=== PATIENT | male | born 1970 | race Caucasian/White ===

== ENCOUNTER 2019-02-18 12:43 | Inpatient (IN) | payer OTHER ==
[2019-02-18 13:32] VITALS: BMI 22.6
--- NOTE | 2019-02-18 16:38 | HP ---
CIWA Score Nausea/Vomitin-No Nausea/No Vomiting Muscle Tremors: 4-Moderate,w/Arms Extend Anxiety: 3 Agitation: 1-Slight > Activity Paroxysmal Sweats: 2 Orientation: 0-Oriented Tacttile Disturbances: 0-None Auditory Disturbances: 0-None Visual Disturbances: 1-Very Mild Sensitivity Headache: 2-Mild CIWA-Ar Total Score: 13 - Admission Criteria OASAS Guidelines: Admission for Medically Managed Detox: Requires at least one of the followin. CIWA greater than 12 2. Seizures within the past 24 hours 3. Delirium tremens within the past 24 hours 4. Hallucinations within the past 24 hours 5. Acute intervention needed for co occurring medical disorder 6. Acute intervention needed for co occurring psychiatric disorder 7. Severe withdrawal that cannot be handled at a lower level of care (continued vomiting, continued diarrhea, abnormal vital signs) requiring intravenous medication and/or fluids 8. Patient presents the following: CIWA greater than 12 Admission Criteria Met: Admission criteria met Admission ROS [facility] - [facility] Chief Complaint: Vijay Del Rosario is a 48 year old male presenting for alcohol and heroin abuse. Allergies/Adverse Reactions: Allergies Allergy/AdvReac Type Severity Reaction Status Date / Time No Known Allergies Allergy Verified 02/18/19 13:13 History of Present Illness: Vijay Del Rosario is a 48 year old male presenting for alcohol and heroin abuse. Alcohol: drinks about a handle of of vodka daily. Last drink yesterday. Has been drinking since the age of 14. Has had seizures in the past (has an active seizure disorder, last seizure 2 months ago). Has had blackouts. Denies falls and head hits. Longest period of sobriety: 1.5 years. Was previously on treatment but relapsed. Heroin: 7-10 bags/daily. Daily user. Endorses IVDU. Has had history of overdose. Does not have a Narcan kit but does know how to use it. currently on methadone program, dose 45mg, daily. Cocaine: 0.5-1g daily. 5-7 times a week. Has been to detox in the past. Has been to rehab in the past. Plans after detox: wants to go to inpatient rehab. Medical History: cranial aneurysm (hospitalized) with residual L sided deficits , seizure disorder (on Keppra), DMT2 (on insulin), HLD, Hep C (treated), Psychiatric History: PTSD, bipolar, anxiety, depression Surgical History: cranial aneurysm, hernia repair, bilateral knee surgeries ( ligamentous), ankle surgery (s/p fx), appendectomy, necrosis removal (s/p brown recluse spider bite), wrist fx and repair Smokin/2 ppd Social: lives in community residence. [employer], currently on disability. Counseled on proper nutrition. Advised to return to primary care doctor for continued management of his chronic medical conditions. Will be admitted for alcohol detox with CIWA score and history of seizures. Will talk with counselor regarding his options after detox. Exam Limitations: No Limitations - Ebola screening Have you traveled outside of the country in the last 21 days: No Have you had contact with anyone from an Ebola affected area: No - Review of Systems Constitutional: Chills, Loss of Appetite, Changes in sleep EENT: reports: Blurred Vision (chronic), Nose Congestion Respiratory: reports: Cough Cardiac: reports: Palpitations GI: reports: No Symptoms Reported : reports: No Symptoms Reported Musculoskeletal: reports: Back Pain, Muscle Pain, Neck Pain Integumentary: reports: No Symptoms Reported Neuro: reports: Numbness, Tingling (in hand and feet) Endocrine: reports: No Symptoms Reported Hematology: reports: No Symptoms Reported Psychiatric: reports: Anxious, Depressed Patient History - Patient Medical History Hx Anemia: No Hx Asthma: No Hx Chronic Obstructive Pulmonary Disease (COPD): No Hx Cancer: No Hx Cardiac Disorders: No Hx Congestive Heart Failure: No Hx Hypertension: No Hx Hypercholesterolemia: Yes Hx Pacemaker: No HX Cerebrovascular Accident: Yes (aneurysm rupture) Hx Seizures: Yes (on Keppra) Hx Dementia: No Hx Diabetes: Yes Hx Gastrointestinal Disorders: No Hx Liver Disease: No Hx Genitourinary Disorders: No Hx Sexually Transmitted Disorders: No Hx Renal Disease (ESRD): No Hx Thyroid Disease: No Hx Human Immunodeficiency Virus (HIV): No Hx Hepatitis C: Yes (treated) Hx Depression: Yes Hx Suicide Attempt: No Hx Bipolar Disorder: Yes Hx Schizophrenia: No - Patient Surgical History Hx Neurologic Surgery: Yes (aneurysm repair and craniotomy) Hx Cataract Extraction: No Hx Cardiac Surgery: No Hx Lung Surgery: No Hx Breast Surgery: No Hx Breast Biopsy: No Hx Abdominal Surgery: Yes (hernioa repair) Hx Appendectomy: Yes Hx Cholecystectomy: No Hx Genitourinary Surgery: No Hx Orthopedic Surgery: Yes (multiple fx repairs) - PPD History Previous Implant?: No PPD to be Administered?: Yes - Smoking Cessation Smoking history: Current every day smoker Have you smoked in the past 12 months: Yes Initiated information on smoking cessation: Yes 'Breaking Loose' booklet given: 02/18/19 - Substance & Tx. History Hx Alcohol Use: Yes Hx Substance Use: Yes Substance Use Type: Alcohol, Cocaine, Heroin - Substances abused Heroin Substance route: Injection Frequency: Daily Amount used: 8 bags Age of first use: 17 Date of last use: 02/18/19 Cocaine Substance route: Injection Frequency: Daily Amount used: 2 grams Age of first use: 16 Date of last use: 02/17/19 Alcohol Substance route: Oral Frequency: Daily Amount used: handle of vodka daily Date of last use: 02/17/19 Admission Physical Exam S - Vital Signs Vital Signs: Vital Signs - 24 hr 02/18/19 13:30 Temperature 96.6 F L Pulse Rate 84 Respiratory 18 Rate Blood Pressure 130/75 - Physical General Appearance: Yes: Disheveled, Mild Distress HEENTM: Yes: EOMI, Normocephalic, Normal Voice, TRAVIS, Pharynx Normal, Other ( dry mucous membranes) Respiratory: Yes: Chest Non-Tender, Lungs Clear, Normal Breath Sounds, No Respiratory Distress, No Accessory Muscle Use Neck: Yes: No masses,lesions,Nodules, Trachea in good position Breast: Yes: Breast Exam Deferred Cardiology: Yes: Regular Rhythm, Regular Rate, S1, S2 Abdominal: Yes: Normal Bowel Sounds, Non Tender, Flat Genitourinary: Yes: Within Normal Limits Back: Yes: Normal Inspection Musculoskeletal: Yes: Back pain, Joint Stiffness Extremities: Yes: Normal Capillary Refill, Normal Range of Motion, Non-Tender Neurological: Yes: investigator internal affairs II-XII NML intact, Alert, Numbness (on R hand), Other ( decreased strength on R hand 4/5, all other 5/5) Integumentary: Yes: Normal Color, Dry, Warm, Track Cano (noted on bilateral AC) - Diagnostic (1) Alcohol abuse Current Visit: Yes Status: Acute (2) Heroin abuse Current Visit: Yes Status: Acute (3) Methadone maintenance therapy patient Current Visit: Yes Status: Acute (4) IVDU (intravenous drug user) Current Visit: Yes Status: Acute (5) Cocaine abuse Current Visit: Yes Status: Acute (6) Nicotine dependence Current Visit: Yes Status: Acute (7) HLD (hyperlipidemia) Current Visit: Yes Status: Acute (8) Hepatitis C carrier Current Visit: Yes Status: Acute (9) Seizure disorder Current Visit: Yes Status: Acute (10) Diabetes mellitus Current Visit: Yes Status: Acute (11) PTSD (post-traumatic stress disorder) Current Visit: Yes Status: Acute (12) Depression Current Visit: Yes Status: Acute (13) Anxiety Current Visit: Yes Status: Acute (14) Bipolar disorder Current Visit: Yes Status: Acute Cleared for Admission S - Detox or Rehab [facility] Level of Care: Medically Managed Detox Regimen/Protocol: Librium Inpatient Rehab Admission - Rehab Decision to Admit Inpatient rehab admission?: No
[2019-02-18] MEDS ORDERED: IBUPROFEN 400 MG TABLET (FP) PO PRN (17:03)
[2019-02-18] MEDS ORDERED: MENTHOL/PHENOL 1 EACH UD MM PRN (17:03)
[2019-02-18] MEDS ORDERED: chlordiazePOXIDE HCL 25 MG CAPSULE PO PRN (17:03)
[2019-02-18] MEDS ORDERED: BISMUTH SUBSALICYLATE 524 MG/30 ML UD PO PRN (17:03)
[2019-02-18] MEDS ORDERED: ACETAMINOPHEN 325 MG TABLET (FP) PO PRN ×2 (17:03)
[2019-02-18] MEDS ORDERED: MAGNESIUM CITRATE 300 ML BOTTLE PO PRN (17:03)
[2019-02-18] MEDS ORDERED: hydrOXYzine PAMOATE 25 MG CAPSULE (FP) PO PRN (17:03)
[2019-02-18] MEDS ORDERED: METHOCARBAMOL 500 MG TABLET PO PRN (17:03)
[2019-02-18] MEDS ORDERED: MAGNESIUM HYDROX 2400MG/30ML ORAL SUSPENSION 30 ML CUP PO PRN (17:03)
[2019-02-18] MEDS ORDERED: ALBUTEROL SO4 8 GM HFA INHALER IH PRN (17:22)
--- NOTE | 2019-02-18 17:31 | PN ---
Teaching Attending Note Name of Resident: Thad Haile ATTENDING PHYSICIAN STATEMENT I saw and evaluated the patient. I reviewed the resident's note and discussed the case with the resident. I agree with the resident's findings and plan as documented. SUBJECTIVE: 48 yo with HCV- s/p treatment, seizures, DM on insulin, here for alcohol detox- uses 1.6L of vodka/day, also in MAT methadone- but still uses IV heroin. Last methadone dose yesterday OBJECTIVE: Vital Signs - 24 hr 02/18/19 13:30 Temperature 96.6 F L Pulse Rate 84 Respiratory 18 Rate Blood Pressure 130/75 tremulous alert and oriented ASSESSMENT AND PLAN: AUD- librium detox protocol continue methadone MAT
[2019-02-18] MEDS ORDERED: levETIRAcetam XR 750 MG TAB PO SCH (22:00)
[2019-02-18] MEDS: GABAPENTIN 300 MG CAPSULE (FP) PO SCH (22:16)
[2019-02-18] MEDS: MELATONIN 5 MG TABLETS PO PRN (22:16)
[2019-02-18] MEDS: chlordiazePOXIDE HCL 25 MG CAPSULE PO SCH (22:16)
[2019-02-18] MEDS: MONTELUKAST NA 10 MG TABLET PO SCH (22:16)
[2019-02-18] MEDS: THIAMINE HCL 100 MG TABLET (FP) PO SCH (22:16)
[2019-02-18] MEDS: levETIRAcetam 250 MG TABLET (FP) PO SCH (22:18)
[2019-02-18] MEDS: INSULIN (LEVEMIR) 100 UNITS/ML UNITS SQ SCH (22:20)
[2019-02-18] MEDS: INSULIN SLIDING SCALE (NOVOLOG) 1 VIAL SQ SCH (22:20)
[2019-02-19] MEDS: chlordiazePOXIDE HCL 25 MG CAPSULE PO SCH ×4 (05:48→22:06)
[2019-02-19] MEDS: GABAPENTIN 300 MG CAPSULE (FP) PO SCH ×3 (05:48→22:05)
[2019-02-19] MEDS: metFORMIN HCL 500 MG TABLET (FP) PO SCH ×2 (06:35→17:11)
[2019-02-19] MEDS: INSULIN SLIDING SCALE (NOVOLOG) 1 VIAL SQ SCH ×4 (08:04→22:06)
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
[2019-02-19] MEDS: ASPIRIN 81 MG CHEWABLE TABLETS PO SCH (10:05)
[2019-02-19] MEDS: levETIRAcetam 250 MG TABLET (FP) PO SCH ×2 (10:05→22:05)
[2019-02-19] MEDS: NICOTINE 14 MG/24 HOURS TOPICAL PATCH TD SCH (10:07)
[2019-02-19] MEDS: PRENATAL VITAMINS W/ FOLIC ACID TABLET (FP) PO SCH (10:07)
[2019-02-19 10:20] LABS: HEMATOCRIT 39.2 % (35.4-49); HEMOGLOBIN 13.5 GM/dL (11.7-16.9); MCH 31.8 pg (25.7-33.7); MCHC 34.5 g/dl (32.0-35.9); MEAN CELL VOLUME 92.3 fl (80-96); MEAN PLT VOLUME 8.1 fl (7.5-11.1); PLATELET COUNT 199 K/MM3 (134-434); RBC 4.24 M/mm3 (4.00-5.60); RDW 12.6 % (11.9-15.9); WHITE BLOOD COUNT 10.8 K/mm3 (4.0-10.0)
[2019-02-19 10:21] LABS: ALBUMIN 3.2 g/dl (3.4-5.0); BILIRUBIN,TOTAL 0.3 mg/dL (0.2-1); CALCIUM 8.2 mg/dL (8.5-10.1); CREATININE 0.8 mg/dL (0.55-1.3); POTASSIUM 4.2 mmol/L (3.5-5.1); TOT PROT 6.5 g/dl (6.4-8.2)
[2019-02-19] MEDS ORDERED: METHADONE HCL 10 MG TABLET PO SCH (10:45)
[2019-02-19] MEDS ORDERED: METHADONE HCL 10 MG TABLET ONE ×2 (11:46→11:50)
[2019-02-19] MEDS ORDERED: METHADONE HCL 40 MG DISPERSABLE TABLET ONE ×2 (11:46→11:51)
[2019-02-19] MEDS ORDERED: METHADONE HCL 5 MG TABLET ONE ×2 (11:47→11:51)
[2019-02-19] MEDS: ESCITALOPRAM OXALATE 10 MG TABLET (FP) PO SCH (11:59)
[2019-02-19] MEDS: QUEtiapine FUMARATE 25 MG TABLET (FP) PO SCH ×2 (11:59→22:04)
[2019-02-19] MEDS: METHADONE 40 MG, METHADONE 10 MG, METHADONE 5 MG PO SCH (11:59)
[2019-02-19] MEDS: MAG HYDROX/AL HYDROX/SIMETH 30 ML UNIT-DOSE CUP PO PRN ×2 (13:32→21:41)
[2019-02-19] MEDS ORDERED: TRIMETHOBENZAMIDE HCL 300 MG CAPSULE PO PRN (13:47)
--- NOTE | 2019-02-19 13:53 | PN ---
[facility] CIWA - CIWA Score Nausea/Vomitin Muscle Tremors: None Anxiety: 3 Agitation: 2 Paroxysmal Sweats: 3 Orientation: 0-Oriented Tacttile Disturbances: 0-None Auditory Disturbances: 0-None Visual Disturbances: 2-Mild Sensitivity Headache: 0-None Present CIWA-Ar Total Score: 13 S Progress Note (SOAP) Subjective: Sweating, Nausea, H/A, Anxious. Objective: PATIENT A & O X 3, OBSERVED AMBULATING ON DETOX UNIT UNASSISTED. IN NO ACUTE DISTRESS. PATIENT AFEBRILE. 02/19/19 13:52 Vital Signs Temperature 96.6 F L 02/19/19 09:03 Pulse Rate 98 H 02/19/19 09:03 Respiratory Rate 19 02/19/19 09:03 Blood Pressure 119/76 02/19/19 09:03 O2 Sat by Pulse Oximetry (%) Laboratory Tests 02/18/19 02/19/19 02/19/19 20:59 05:50 08:10 WBC 10.8 H RBC 4.24 Hgb 13.5 Hct 39.2 MCV 92.3 MCH 31.8 MCHC 34.5 RDW 12.6 Plt Count 199 MPV 8.1 Sodium Potassium Chloride Carbon Dioxide Anion Gap BUN Creatinine Est GFR (CKD-EPI)AfAm Est GFR (CKD-EPI)NonAf POC Glucometer 250 164 Random Glucose Calcium Total Bilirubin AST ALT Alkaline Phosphatase Total Protein Albumin RPR Titer 02/19/19 02/19/19 08:10 08:10 WBC RBC Hgb Hct MCV MCH MCHC RDW Plt Count MPV Sodium 139 Potassium 4.2 Chloride 103 Carbon Dioxide 31 Anion Gap 6 L BUN 22.0 H Creatinine 0.8 Est GFR (CKD-EPI)AfAm 123.29 Est GFR (CKD-EPI)NonAf 106.38 POC Glucometer Random Glucose 135 H Calcium 8.2 L Total Bilirubin 0.3 AST 17 ALT 23 Alkaline Phosphatase 94 Total Protein 6.5 Albumin 3.2 L RPR Titer Nonreactive LABS NOTED. Assessment: 02/19/19 13:50 WITHDRAWAL SYMPTOMS. LEUKOCYTOSIS. 02/19/19 13:52 Plan: CONTINUE DETOX. INCREASE DAILY PO WATER INTAKE. PRN TIGAN PO FOR NAUSEA. REPEAT CBC TOMORROW AM FOR ELEVATED WBC LEVEL NOTED ON DETOX ADMISSION LABORATORY ASSESSMENT (PATIENT REPORTED HISTORY OF IVDU ON DETOX ADMISSION HISTORY AND PHYSICAL ASSESSMENT).
[2019-02-19] MEDS: MONTELUKAST NA 10 MG TABLET PO SCH (22:05)
[2019-02-19] MEDS: THIAMINE HCL 100 MG TABLET (FP) PO SCH (22:06)
[2019-02-19] MEDS: INSULIN (LEVEMIR) 100 UNITS/ML UNITS SQ SCH (22:06)
[2019-02-20] MEDS ORDERED: METHADONE HCL 10 MG TABLET ONE (04:05)
[2019-02-20] MEDS ORDERED: METHADONE HCL 40 MG DISPERSABLE TABLET ONE (04:06)
[2019-02-20] MEDS ORDERED: METHADONE HCL 5 MG TABLET ONE (04:06)
[2019-02-20] MEDS: METHADONE 40 MG, METHADONE 10 MG, METHADONE 5 MG PO SCH (05:39)
[2019-02-20] MEDS: chlordiazePOXIDE HCL 25 MG CAPSULE PO SCH ×4 (05:40→22:21)
[2019-02-20] MEDS: GABAPENTIN 300 MG CAPSULE (FP) PO SCH ×3 (05:40→22:20)
[2019-02-20] MEDS: metFORMIN HCL 500 MG TABLET (FP) PO SCH ×2 (06:13→17:02)
[2019-02-20] MEDS: INSULIN SLIDING SCALE (NOVOLOG) 1 VIAL SQ SCH ×4 (07:59→22:24)
[2019-02-20] MEDS ORDERED: KETOROLAC TROMETHAMINE 10 MG TABLET PO SCH (10:00)
[2019-02-20] MEDS: ASPIRIN 81 MG CHEWABLE TABLETS PO SCH (10:01)
[2019-02-20] MEDS: ESCITALOPRAM OXALATE 10 MG TABLET (FP) PO SCH (10:01)
[2019-02-20] MEDS: PRENATAL VITAMINS W/ FOLIC ACID TABLET (FP) PO SCH (10:01)
[2019-02-20] MEDS: QUEtiapine FUMARATE 25 MG TABLET (FP) PO SCH ×2 (10:01→22:20)
[2019-02-20] MEDS: NICOTINE 14 MG/24 HOURS TOPICAL PATCH TD SCH (10:02)
[2019-02-20 10:14] LABS: BASO % 0.6 % (0-2.0); EOS % 6.6 % (0-4.5); HEMATOCRIT 37.4 % (35.4-49); HEMOGLOBIN 12.7 GM/dL (11.7-16.9); LYMPH % 22.9 % (8-40); MCH 31.2 pg (25.7-33.7); MEAN CELL VOLUME 91.8 fl (80-96); MEAN PLT VOLUME 7.8 fl (7.5-11.1); MONO % 8.3 % (3.8-10.2); NEUT % 61.6 % (42.8-82.8); PLATELET COUNT 199 K/MM3 (134-434); RBC 4.08 M/mm3 (4.00-5.60); RDW 12.7 % (11.9-15.9); WHITE BLOOD COUNT 11.8 K/mm3 (4.0-10.0)
[2019-02-20] MEDS: levETIRAcetam 250 MG TABLET (FP) PO SCH ×2 (10:30→22:21)
[2019-02-20] MEDS: MAG HYDROX/AL HYDROX/SIMETH 30 ML UNIT-DOSE CUP PO PRN ×2 (10:31→21:36)
[2019-02-20] MEDS: CYCLOBENZAPRINE HCL 5 MG TABLET PO SCH ×2 (13:16→22:20)
--- NOTE | 2019-02-20 14:40 | PN ---
[facility] CIWA - CIWA Score Nausea/Vomitin-No Nausea/No Vomiting Muscle Tremors: None Anxiety: 3 Agitation: 3 Paroxysmal Sweats: 3 Orientation: 0-Oriented Tacttile Disturbances: 2-Mild Itch/Numbness/Burn Auditory Disturbances: 0-None Visual Disturbances: 0-None Headache: 0-None Present CIWA-Ar Total Score: 11 S Progress Note (SOAP) Subjective: Anxious, Constipation, Sweating. Objective: PATIENT A & O X 3, OBSERVED AMBULATING ON DETOX UNIT UNASSISTED. IN NO ACUTE DISTRESS. 02/20/19 14:39 Vital Signs Temperature 97.7 F 02/20/19 13:37 Pulse Rate 106 H 02/20/19 13:37 Respiratory Rate 20 02/20/19 13:37 Blood Pressure 147/99 02/20/19 13:37 O2 Sat by Pulse Oximetry (%) Laboratory Tests 02/18/19 02/19/19 02/19/19 20:59 05:50 08:10 WBC 10.8 H RBC 4.24 Hgb 13.5 Hct 39.2 MCV 92.3 MCH 31.8 MCHC 34.5 RDW 12.6 Plt Count 199 MPV 8.1 Absolute Neuts (auto) Neutrophils % Lymphocytes % Monocytes % Eosinophils % Basophils % Nucleated RBC % Sodium Potassium Chloride Carbon Dioxide Anion Gap BUN Creatinine Est GFR (CKD-EPI)AfAm Est GFR (CKD-EPI)NonAf POC Glucometer 250 164 Random Glucose Calcium Total Bilirubin AST ALT Alkaline Phosphatase Total Protein Albumin RPR Titer 02/19/19 02/19/19 02/19/19 08:10 08:10 16:28 WBC RBC Hgb Hct MCV MCH MCHC RDW Plt Count MPV Absolute Neuts (auto) Neutrophils % Lymphocytes % Monocytes % Eosinophils % Basophils % Nucleated RBC % Sodium 139 Potassium 4.2 Chloride 103 Carbon Dioxide 31 Anion Gap 6 L BUN 22.0 H Creatinine 0.8 Est GFR (CKD-EPI)AfAm 123.29 Est GFR (CKD-EPI)NonAf 106.38 POC Glucometer 212 Random Glucose 135 H Calcium 8.2 L Total Bilirubin 0.3 AST 17 ALT 23 Alkaline Phosphatase 94 Total Protein 6.5 Albumin 3.2 L RPR Titer Nonreactive 02/19/19 02/20/19 02/20/19 20:52 05:40 08:00 WBC 11.8 H RBC 4.08 Hgb 12.7 Hct 37.4 MCV 91.8 MCH 31.2 MCHC 34.0 RDW 12.7 Plt Count 199 MPV 7.8 Absolute Neuts (auto) 7.2 Neutrophils % 61.6 Lymphocytes % 22.9 Monocytes % 8.3 Eosinophils % 6.6 H Basophils % 0.6 Nucleated RBC % 0 Sodium Potassium Chloride Carbon Dioxide Anion Gap BUN Creatinine Est GFR (CKD-EPI)AfAm Est GFR (CKD-EPI)NonAf POC Glucometer 181 131 Random Glucose Calcium Total Bilirubin AST ALT Alkaline Phosphatase Total Protein Albumin RPR Titer 02/20/19 10:34 WBC RBC Hgb Hct MCV MCH MCHC RDW Plt Count MPV Absolute Neuts (auto) Neutrophils % Lymphocytes % Monocytes % Eosinophils % Basophils % Nucleated RBC % Sodium Potassium Chloride Carbon Dioxide Anion Gap BUN Creatinine Est GFR (CKD-EPI)AfAm Est GFR (CKD-EPI)NonAf POC Glucometer 287 Random Glucose Calcium Total Bilirubin AST ALT Alkaline Phosphatase Total Protein Albumin RPR Titer LABS NOTED. RESULTS OF REPEAT CBC NOTED. REPEAT WBC LEVEL NOTED TO BE FURTHER ELEVATED (11.8 ). PATIENT AFEBRILE. PATIENT DENIED RECENT HISTORY OF IVDU TO FUND ACCOUNTANT TODAY; HOWEVER, TRACK HINOJOSA NOTED ON BILATERAL AC CREASES ON DETOX ADMISSION H & P. NO URINARY COMPLAINTS (BURNING, PAIN, FREQUENCY, URGENCY, HESITANCY) OFFERED BY PATIENT DURING TODAY'S ROUNDS ASSESSMENT. 02/20/19 14:42 Assessment: 02/20/19 14:40 WITHDRAWAL SYMPTOMS. LEUKOCYTOSIS. Plan: CONTINUE DETOX. MEDICAL CONSULTATION WITH RESIDENT DR. Amaury CLEMENS REQUESTED FOR ELEVATED WBC LEVEL NOTED ON DETOX ADMISSION AND REPEAT LABORATORY ASSESSMENT.
--- NOTE | 2019-02-20 15:08 | HOSP ---
Subjective - Review of Symptoms Subjective: 48 year old male history of hepatitis C (treated with Harvoni), alcohol withdrawal seizures here for detox from alcohol and heroin use. Consulted for leukocytosis. Patient reports he knows about a leukocytosis that started 5 years ago after beginning treatment with Harvoni. States that ever since, his white count has been elevated, last time he was evaluated by a doctor he reports it being ~12.5. States that he has seen a public health clinical nurse specialist for the elevated white count, has never been explained before and was told that no one could "figure it out". Denies any chest pain, shortness of breath, headache, nausea, vomiting, diarrhea, fevers, chills. Report mild flu like chills a few days ago but otherwise denies any recent illness or sick contacts. Alcohol: handle of vodka daily since 14 years old. Has had alcohol withdrawal seizures *Reported history of IVDA* Medical History: cranial aneurysm (hospitalized) with residual L sided deficits , seizure disorder (on Keppra), DMT2 (on insulin), HLD, Hep C (treated), Psychiatric History: PTSD, bipolar, anxiety, depression Surgical History: cranial aneurysm, hernia repair, bilateral knee surgeries ( ligamentous), ankle surgery (s/p fx), appendectomy, necrosis removal (s/p brown recluse spider bite), wrist fx and repair Smokin/2 ppd Social: lives in community residence. [employer], currently on disability. Physical Exam: Head: normocephalic Neck: No lymphadenopathy, no JVD Heart: mildly tachycardic, no murmurs Lungs: clear to auscultation, no wheezes, no crackles Abdomen: bowel sounds normal, no tenderness Extremities: pulses intact Pulmonary: No: Cough Gastrointestinal: No: Nausea, Vomiting, Abdominal Pain Genitourinary: No: Dysuria Physical Examination Vital Signs: Vital Signs Temperature 97.7 F 02/20/19 13:37 Pulse Rate 106 H 02/20/19 13:37 Respiratory Rate 20 02/20/19 13:37 Blood Pressure 147/99 02/20/19 13:37 O2 Sat by Pulse Oximetry (%) Constitutional: Yes: No Distress, Calm HENT: Yes: Atraumatic Cardiovascular: Yes: Tachycardia Respiratory: Yes: Regular, CTA Bilaterally Gastrointestinal: Yes: Normal Bowel Sounds, Soft Edema: No Peripheral Pulses WNL: Yes Integumentary: Yes: Skin Tear (Minor skin tear on) Labs: CBC, BMP 02/20/19 08:00 02/19/19 08:10 Hospitalist Encounter Assessment: 48 year old male being assessed for leukocytosis. #Leukocytosis: mild leukocytosis (11.8 up from 10.8) does not appear infectious in origin. Based on history of leukocytosis in the past and patient report of knowing he has it and had workup with public health clinical nurse specialist in the past, appears more as a chronic variation in patient's white count. Patient is currently undergoing detox from heroin and alcohol, and the symptoms of withdrawal could cause a leukemoid reaction. No dysuria or cough/SOB/chest pain, no current need to assess for urinary tract infection or pneumonia. Would opt to repeat labs prior to discharge and have patient repeat labs as an outpatient. Would also recommend appointment to public health clinical nurse specialist after discharge from detox for further evaluation. Visit type - Emergency Visit Emergency Visit: No - New Patient This patient is new to me today: Yes Date on this admission: 02/20/19 - Critical Care Critical Care patient: No
[2019-02-20] MEDS: KETOROLAC TROMETHAMINE 10 MG TABLET PO PRN (15:18)
[2019-02-20] MEDS: PANTOPRAZOLE 40 MG TABLET (FP) PO SCH (17:02)
[2019-02-20] MEDS: MONTELUKAST NA 10 MG TABLET PO SCH (22:20)
[2019-02-20] MEDS: THIAMINE HCL 100 MG TABLET (FP) PO SCH (22:20)
[2019-02-20] MEDS: MELATONIN 5 MG TABLETS PO PRN (22:22)
[2019-02-20] MEDS: INSULIN (LEVEMIR) 100 UNITS/ML UNITS SQ SCH (22:22)
[2019-02-21] MEDS ORDERED: chlordiazePOXIDE HCL 10 MG CAPSULE PO PRN
[2019-02-21] MEDS ORDERED: METHADONE HCL 10 MG TABLET ONE (04:51)
[2019-02-21] MEDS ORDERED: METHADONE HCL 5 MG TABLET ONE (04:52)
[2019-02-21] MEDS ORDERED: METHADONE HCL 40 MG DISPERSABLE TABLET ONE (04:52)
[2019-02-21] MEDS: METHADONE 40 MG, METHADONE 10 MG, METHADONE 5 MG PO SCH (05:27)
[2019-02-21] MEDS: chlordiazePOXIDE HCL 10 MG CAPSULE PO SCH ×4 (05:28→22:15)
[2019-02-21] MEDS: GABAPENTIN 300 MG CAPSULE (FP) PO SCH ×3 (05:28→22:11)
[2019-02-21] MEDS: CYCLOBENZAPRINE HCL 5 MG TABLET PO SCH ×3 (05:28→22:24)
[2019-02-21] MEDS: metFORMIN HCL 500 MG TABLET (FP) PO SCH ×2 (07:34→17:44)
[2019-02-21] MEDS: INSULIN SLIDING SCALE (NOVOLOG) 1 VIAL SQ SCH ×4 (07:35→22:13)
--- NOTE | 2019-02-21 10:01 | PN ---
S CIWA - CIWA Score Nausea/Vomitin-No Nausea/No Vomiting Muscle Tremors: None Anxiety: 3 Agitation: 0-Normal Activity Paroxysmal Sweats: 3 Orientation: 0-Oriented Tacttile Disturbances: 0-None Auditory Disturbances: 0-None Visual Disturbances: 0-None Headache: 2-Mild CIWA-Ar Total Score: 8 BHS Progress Note (SOAP) Subjective: c/o sweats, anxiety, and headache. Objective: 02/21/19 10:00 Vital Signs 02/21/19 02/21/19 03:30 06:33 Temperature 97.5 F L Pulse Rate 95 H Respiratory 18 18 Rate Blood Pressure 103/67 Lab Results WBC 11.8 K/mm3 (4.0-10.0) H 02/20/19 08:00 RBC 4.08 M/mm3 (4.00-5.60) 02/20/19 08:00 Hgb 12.7 GM/dL (11.7-16.9) 02/20/19 08:00 Hct 37.4 % (35.4-49) 02/20/19 08:00 MCV 91.8 fl (80-96) 02/20/19 08:00 MCHC 34.0 g/dl (32.0-35.9) 02/20/19 08:00 RDW 12.7 % (11.9-15.9) 02/20/19 08:00 Plt Count 199 K/MM3 (134-434) 02/20/19 08:00 Sodium 139 mmol/L (136-145) 02/19/19 08:10 Potassium 4.2 mmol/L (3.5-5.1) 02/19/19 08:10 Chloride 103 mmol/L (98-107) 02/19/19 08:10 Carbon Dioxide 31 mmol/L (21-32) 02/19/19 08:10 Anion Gap 6 MMOL/L (8-16) L 02/19/19 08:10 BUN 22.0 mg/dL (7-18) H 02/19/19 08:10 Creatinine 0.8 mg/dL (0.55-1.3) 02/19/19 08:10 Random Glucose 135 mg/dL (74-106) H 02/19/19 08:10 Calcium 8.2 mg/dL (8.5-10.1) L 02/19/19 08:10 Labs noted. Assessment: 02/21/19 10:00 AOX3, in no acute respiratory distress. Full ROM, ambulating in the unit. Withdrawal symptoms. 02/21/19 10:01 Plan: continue detox. Increase fluids.
[2019-02-21] MEDS: QUEtiapine FUMARATE 25 MG TABLET (FP) PO SCH ×2 (10:14→22:11)
[2019-02-21] MEDS: PANTOPRAZOLE 40 MG TABLET (FP) PO SCH (10:14)
[2019-02-21] MEDS: ESCITALOPRAM OXALATE 10 MG TABLET (FP) PO SCH (10:14)
[2019-02-21] MEDS: PRENATAL VITAMINS W/ FOLIC ACID TABLET (FP) PO SCH (10:14)
[2019-02-21] MEDS: NICOTINE 14 MG/24 HOURS TOPICAL PATCH TD SCH (11:03)
[2019-02-21] MEDS: ASPIRIN 81 MG CHEWABLE TABLETS PO SCH (11:27)
[2019-02-21] MEDS: levETIRAcetam 250 MG TABLET (FP) PO SCH ×2 (11:27→22:11)
[2019-02-21] MEDS: MONTELUKAST NA 10 MG TABLET PO SCH (22:11)
[2019-02-21] MEDS: THIAMINE HCL 100 MG TABLET (FP) PO SCH (22:11)
[2019-02-21] MEDS: INSULIN (LEVEMIR) 100 UNITS/ML UNITS SQ SCH (22:12)
[2019-02-22] MEDS ORDERED: METHADONE HCL 5 MG TABLET ONE (04:11)
[2019-02-22] MEDS ORDERED: METHADONE HCL 40 MG DISPERSABLE TABLET ONE (04:11)
[2019-02-22] MEDS ORDERED: METHADONE HCL 10 MG TABLET ONE (04:11)
[2019-02-22] MEDS: METHADONE 40 MG, METHADONE 10 MG, METHADONE 5 MG PO SCH (05:52)
[2019-02-22] MEDS: GABAPENTIN 300 MG CAPSULE (FP) PO SCH ×3 (05:52→21:18)
[2019-02-22] MEDS: chlordiazePOXIDE HCL 10 MG CAPSULE PO SCH ×2 (05:53→17:01)
[2019-02-22] MEDS: CYCLOBENZAPRINE HCL 5 MG TABLET PO SCH ×3 (07:28→21:18)
[2019-02-22] MEDS: metFORMIN HCL 500 MG TABLET (FP) PO SCH ×2 (07:28→17:01)
[2019-02-22] MEDS: INSULIN SLIDING SCALE (NOVOLOG) 1 VIAL SQ SCH ×4 (07:29→21:22)
--- NOTE | 2019-02-22 09:57 | PN ---
S CIWA - CIWA Score Nausea/Vomitin-No Nausea/No Vomiting Muscle Tremors: None Anxiety: 2 Agitation: 0-Normal Activity Paroxysmal Sweats: 2 Orientation: 0-Oriented Tacttile Disturbances: 0-None Auditory Disturbances: 0-None Visual Disturbances: 0-None Headache: 0-None Present CIWA-Ar Total Score: 4 BHS Progress Note (SOAP) Subjective: c/o mild anxiety and sweats. Objective: 02/22/19 09:55 Vital Signs 02/22/19 02/22/19 06:13 09:16 Temperature 97.4 F L 97.4 F L Pulse Rate 73 90 Respiratory 16 18 Rate Blood Pressure 116/71 93/64 Lab Results WBC 11.8 K/mm3 (4.0-10.0) H 02/20/19 08:00 RBC 4.08 M/mm3 (4.00-5.60) 02/20/19 08:00 Hgb 12.7 GM/dL (11.7-16.9) 02/20/19 08:00 Hct 37.4 % (35.4-49) 02/20/19 08:00 MCV 91.8 fl (80-96) 02/20/19 08:00 MCHC 34.0 g/dl (32.0-35.9) 02/20/19 08:00 RDW 12.7 % (11.9-15.9) 02/20/19 08:00 Plt Count 199 K/MM3 (134-434) 02/20/19 08:00 Sodium 139 mmol/L (136-145) 02/19/19 08:10 Potassium 4.2 mmol/L (3.5-5.1) 02/19/19 08:10 Chloride 103 mmol/L (98-107) 02/19/19 08:10 Carbon Dioxide 31 mmol/L (21-32) 02/19/19 08:10 Anion Gap 6 MMOL/L (8-16) L 02/19/19 08:10 BUN 22.0 mg/dL (7-18) H 02/19/19 08:10 Creatinine 0.8 mg/dL (0.55-1.3) 02/19/19 08:10 Random Glucose 135 mg/dL (74-106) H 02/19/19 08:10 Calcium 8.2 mg/dL (8.5-10.1) L 02/19/19 08:10 Labs noted. Assessment: 02/22/19 09:55 AOX3, in no respiratory distress. Full ROM, ambulating in the unit. Mild withdrawal symptoms. For d/c tomorrow. Plan: continue detox. D/C in AM.
[2019-02-22] MEDS: ASPIRIN 81 MG CHEWABLE TABLETS PO SCH (10:13)
[2019-02-22] MEDS: ESCITALOPRAM OXALATE 10 MG TABLET (FP) PO SCH (10:14)
[2019-02-22] MEDS: levETIRAcetam 250 MG TABLET (FP) PO SCH ×2 (10:14→21:18)
[2019-02-22] MEDS: QUEtiapine FUMARATE 25 MG TABLET (FP) PO SCH ×2 (10:14→21:18)
[2019-02-22] MEDS: PANTOPRAZOLE 40 MG TABLET (FP) PO SCH (10:14)
[2019-02-22] MEDS: PRENATAL VITAMINS W/ FOLIC ACID TABLET (FP) PO SCH (10:14)
[2019-02-22] MEDS: NICOTINE 14 MG/24 HOURS TOPICAL PATCH TD SCH (10:15)
[2019-02-22] MEDS: INSULIN (LEVEMIR) 100 UNITS/ML UNITS SQ SCH (21:17)
[2019-02-22] MEDS: MONTELUKAST NA 10 MG TABLET PO SCH (21:18)
[2019-02-22] MEDS: THIAMINE HCL 100 MG TABLET (FP) PO SCH (21:18)
[2019-02-22] MEDS: MELATONIN 5 MG TABLETS PO PRN (21:20)
[2019-02-23] MEDS ORDERED: METHADONE HCL 10 MG TABLET ONE (04:25)
[2019-02-23] MEDS ORDERED: METHADONE HCL 5 MG TABLET ONE (04:25)
[2019-02-23] MEDS ORDERED: METHADONE HCL 40 MG DISPERSABLE TABLET ONE (04:25)
[2019-02-23] MEDS ORDERED: chlordiazePOXIDE HCL 10 MG CAPSULE PO ONE (05:00)
[2019-02-23] MEDS: METHADONE 40 MG, METHADONE 10 MG, METHADONE 5 MG PO SCH (05:10)
[2019-02-23] MEDS: GABAPENTIN 300 MG CAPSULE (FP) PO SCH (05:10)
[2019-02-23] MEDS: metFORMIN HCL 500 MG TABLET (FP) PO SCH (06:26)
[2019-02-23] MEDS: CYCLOBENZAPRINE HCL 5 MG TABLET PO SCH (06:44)
[2019-02-23] MEDS: INSULIN SLIDING SCALE (NOVOLOG) 1 VIAL SQ SCH ×2 (06:56→11:43)
--- NOTE | 2019-02-23 07:47 | PN ---
Teaching Attending Note Name of Resident: Thad Hagan ATTENDING PHYSICIAN STATEMENT I saw and evaluated the patient. I reviewed the resident's note and discussed the case with the resident. I agree with the resident's findings and plan as documented. SUBJECTIVE: I agree with subjective findings of the resident OBJECTIVE: I agree with objective findings of the resident ASSESSMENT AND PLAN: Agree with recommendations as to the leukocytosis and follow up upon discharge and thereafter. Patient should follow up with compressed yeast supervisor once again. Dr. Rice
[2019-02-23] MEDS: PANTOPRAZOLE 40 MG TABLET (FP) PO SCH (10:04)
[2019-02-23] MEDS: levETIRAcetam 250 MG TABLET (FP) PO SCH (10:04)
[2019-02-23] MEDS: ASPIRIN 81 MG CHEWABLE TABLETS PO SCH (10:04)
[2019-02-23] MEDS: ESCITALOPRAM OXALATE 10 MG TABLET (FP) PO SCH (10:04)
[2019-02-23] MEDS: NICOTINE 14 MG/24 HOURS TOPICAL PATCH TD SCH (10:04)
[2019-02-23] MEDS: PRENATAL VITAMINS W/ FOLIC ACID TABLET (FP) PO SCH (10:04)
[2019-02-23] MEDS: KETOROLAC TROMETHAMINE 10 MG TABLET PO PRN (10:04)
[2019-02-23] MEDS: QUEtiapine FUMARATE 25 MG TABLET (FP) PO SCH (11:42)
[2019-02-23 13:02] VITALS: BP 112/78; PULSE 96; TEMP 96.5
--- NOTE | 2019-02-23 16:28 | DS ---
[facility] Detox Discharge Summary Admission Date: 02/18/19 Discharge Date: 02/23/19 - History Present History: Alcohol Dependence, Cocaine Dependence, Opioid Dependence, MMTP Additional Comments: PATIENT GOING TO [facility] ([facility]) FOR AFTERCARE. PATIENT WAS DISCHARGED FROM DETOX UNIT TO BE TAKEN OVER TO REHAB UNIT IN STABLE MEDICAL CONDITION. Pertinent Past History: History Of Cranial Aneurysm (with subsequent Left-Sided Deficits), Hypertcholesterolemia, History Of CVA (Aneurysm Rupture), History Of Seizures, Type II DM, Hep C (Treated), Depression, Bipolar Disorder, Anxiety, Depression, History Of hernia Repair, History Of Bilateral Knee Surgeries, History Of ankle Surgery (S/P Fracture), History Of Appendectomy, History Of Necrosis Removal (S/ P Spider Bite), History Of Wrist Fracture and Repair, IVDU, M.M.T.P. - Physical Exam Results Vital Signs: Vital Signs Temperature 96.5 F L 02/23/19 13:02 Pulse Rate 96 H 02/23/19 13:02 Respiratory Rate 16 02/23/19 13:02 Blood Pressure 112/78 02/23/19 13:02 O2 Sat by Pulse Oximetry (%) Pertinent Admission Physical Exam Findings: WITHDRAWAL SYMPTOMS. Laboratory Tests 02/18/19 02/19/19 02/19/19 20:59 05:50 08:10 WBC 10.8 H RBC 4.24 Hgb 13.5 Hct 39.2 MCV 92.3 MCH 31.8 MCHC 34.5 RDW 12.6 Plt Count 199 MPV 8.1 Absolute Neuts (auto) Neutrophils % Lymphocytes % Monocytes % Eosinophils % Basophils % Nucleated RBC % Sodium Potassium Chloride Carbon Dioxide Anion Gap BUN Creatinine Est GFR (CKD-EPI)AfAm Est GFR (CKD-EPI)NonAf POC Glucometer 250 164 Random Glucose Calcium Total Bilirubin AST ALT Alkaline Phosphatase Total Protein Albumin RPR Titer 02/19/19 02/19/19 02/19/19 08:10 08:10 16:28 WBC RBC Hgb Hct MCV MCH MCHC RDW Plt Count MPV Absolute Neuts (auto) Neutrophils % Lymphocytes % Monocytes % Eosinophils % Basophils % Nucleated RBC % Sodium 139 Potassium 4.2 Chloride 103 Carbon Dioxide 31 Anion Gap 6 L BUN 22.0 H Creatinine 0.8 Est GFR (CKD-EPI)AfAm 123.29 Est GFR (CKD-EPI)NonAf 106.38 POC Glucometer 212 Random Glucose 135 H Calcium 8.2 L Total Bilirubin 0.3 AST 17 ALT 23 Alkaline Phosphatase 94 Total Protein 6.5 Albumin 3.2 L RPR Titer Nonreactive 02/19/19 02/20/19 02/20/19 20:52 05:40 08:00 WBC 11.8 H RBC 4.08 Hgb 12.7 Hct 37.4 MCV 91.8 MCH 31.2 MCHC 34.0 RDW 12.7 Plt Count 199 MPV 7.8 Absolute Neuts (auto) 7.2 Neutrophils % 61.6 Lymphocytes % 22.9 Monocytes % 8.3 Eosinophils % 6.6 H Basophils % 0.6 Nucleated RBC % 0 Sodium Potassium Chloride Carbon Dioxide Anion Gap BUN Creatinine Est GFR (CKD-EPI)AfAm Est GFR (CKD-EPI)NonAf POC Glucometer 181 131 Random Glucose Calcium Total Bilirubin AST ALT Alkaline Phosphatase Total Protein Albumin RPR Titer 02/20/19 02/20/19 02/20/19 10:34 16:33 21:13 WBC RBC Hgb Hct MCV MCH MCHC RDW Plt Count MPV Absolute Neuts (auto) Neutrophils % Lymphocytes % Monocytes % Eosinophils % Basophils % Nucleated RBC % Sodium Potassium Chloride Carbon Dioxide Anion Gap BUN Creatinine Est GFR (CKD-EPI)AfAm Est GFR (CKD-EPI)NonAf POC Glucometer 287 260 162 Random Glucose Calcium Total Bilirubin AST ALT Alkaline Phosphatase Total Protein Albumin RPR Titer 02/21/19 02/21/19 02/21/19 05:22 11:26 16:30 WBC RBC Hgb Hct MCV MCH MCHC RDW Plt Count MPV Absolute Neuts (auto) Neutrophils % Lymphocytes % Monocytes % Eosinophils % Basophils % Nucleated RBC % Sodium Potassium Chloride Carbon Dioxide Anion Gap BUN Creatinine Est GFR (CKD-EPI)AfAm Est GFR (CKD-EPI)NonAf POC Glucometer 125 280 358 Random Glucose Calcium Total Bilirubin AST ALT Alkaline Phosphatase Total Protein Albumin RPR Titer 02/21/19 02/22/19 02/22/19 21:51 05:51 11:40 WBC RBC Hgb Hct MCV MCH MCHC RDW Plt Count MPV Absolute Neuts (auto) Neutrophils % Lymphocytes % Monocytes % Eosinophils % Basophils % Nucleated RBC % Sodium Potassium Chloride Carbon Dioxide Anion Gap BUN Creatinine Est GFR (CKD-EPI)AfAm Est GFR (CKD-EPI)NonAf POC Glucometer 389 180 360 Random Glucose Calcium Total Bilirubin AST ALT Alkaline Phosphatase Total Protein Albumin RPR Titer 02/22/19 02/22/19 02/23/19 16:18 20:37 05:10 WBC RBC Hgb Hct MCV MCH MCHC RDW Plt Count MPV Absolute Neuts (auto) Neutrophils % Lymphocytes % Monocytes % Eosinophils % Basophils % Nucleated RBC % Sodium Potassium Chloride Carbon Dioxide Anion Gap BUN Creatinine Est GFR (CKD-EPI)AfAm Est GFR (CKD-EPI)NonAf POC Glucometer 259 279 182 Random Glucose Calcium Total Bilirubin AST ALT Alkaline Phosphatase Total Protein Albumin RPR Titer 02/23/19 11:35 WBC RBC Hgb Hct MCV MCH MCHC RDW Plt Count MPV Absolute Neuts (auto) Neutrophils % Lymphocytes % Monocytes % Eosinophils % Basophils % Nucleated RBC % Sodium Potassium Chloride Carbon Dioxide Anion Gap BUN Creatinine Est GFR (CKD-EPI)AfAm Est GFR (CKD-EPI)NonAf POC Glucometer 280 Random Glucose Calcium Total Bilirubin AST ALT Alkaline Phosphatase Total Protein Albumin RPR Titer LABS NOTED. - Treatment Hospital Course: Detox Protocol Followed, Detoxed Safely, Responded well, Discharged Condition Good, Rehab Referral Accepted Patient has Accepted a Rehab Referral to: [facility] ([place], [place]). - Medication Discharge Medications: Ambulatory Orders Citalopram Hydrobromide [Celexa -] 10 mg PO DAILY 02/18/19 Cyclobenzaprine HCl [Flexeril -] 10 mg PO BID 02/18/19 Gabapentin [Neurontin -] 300 mg PO Q8H 02/18/19 Insulin Glargine,Hum.rec.anlog [Lantus Solostar] 15 unit SQ HS 02/18/19 Ketorolac Tromethamine 10 mg PO BID 02/18/19 Multivitamin [Multiple Vitamins] 1 each PO DAILY 02/18/19 Quetiapine Fumarate [Seroquel -] 25 mg PO BID 02/18/19 Escitalopram Oxalate [Lexapro -] 10 mg PO DAILY 02/19/19 Albuterol Sulfate [Proair Hfa] 2 puff IH Q6H PRN 30 Days #1 hfa.aer.ad 02/22/19 Aspirin 81 mg PO DAILY 14 Days #14 tab.chew 02/22/19 Levetiracetam [Keppra Xr] 750 mg PO BID 14 Days #28 tab.er.24h 02/22/19 Metformin HCl [Glucophage] 500 mg PO BID 14 Days #28 tablet 02/22/19 Montelukast Sodium [Singulair] 10 mg PO DAILY 14 Days #14 tablet 02/22/19 - Diagnosis (1) Alcohol abuse Status: Acute (2) Anxiety Status: Acute (3) Bipolar disorder Status: Acute Qualifiers: Active/Remission status: remission status unspecified Qualified Code(s): F31.9 - Bipolar disorder, unspecified (4) Cocaine abuse Status: Acute (5) Depression Status: Acute Qualifiers: Depression Type: unspecified Qualified Code(s): F32.9 - Major depressive disorder, single episode, unspecified (6) Diabetes mellitus Status: Acute Qualifiers: Diabetes mellitus type: type 2 Diabetes mellitus watermaster insulin use: with watermaster use Diabetes mellitus complication status: with other specified complication Qualified Code(s): E11.69 - Type 2 diabetes mellitus with other specified complication; Z79.4 - custodial (current) use of insulin (7) HLD (hyperlipidemia) Status: Acute Qualifiers: Hyperlipidemia type: unspecified Qualified Code(s): E78.5 - Hyperlipidemia , unspecified (8) Hepatitis C carrier Status: Acute (9) Heroin abuse Status: Acute (10) IVDU (intravenous drug user) Status: Acute (11) Leukocytosis Status: Acute Qualifiers: Leukocytosis type: unspecified Qualified Code(s): D72.829 - Elevated white blood cell count, unspecified (12) Methadone maintenance therapy patient Status: Chronic (13) Nicotine dependence Status: Acute Qualifiers: Nicotine product type: cigarettes Substance use status: uncomplicated Qualified Code(s): F17.210 - Nicotine dependence, cigarettes, uncomplicated (14) Seizure disorder Status: Acute (15) PTSD (post-traumatic stress disorder) Status: Chronic (16) Alcohol dependence Status: Acute Qualifiers: Substance use status: in withdrawal Complication of substance-induced condition: uncomplicated Qualified Code(s): F10.230 - Alcohol dependence with withdrawal, uncomplicated (17) Mood disorder Status: Chronic - AMA Did Patient Leave Against Medical Advice: No BHS CIWA - CIWA Score Nausea/Vomitin-No Nausea/No Vomiting Muscle Tremors: None Anxiety: 1-Mildly Anxious Agitation: 2 Paroxysmal Sweats: No Perspiration Orientation: 0-Oriented Tacttile Disturbances: 0-None Auditory Disturbances: 0-None Visual Disturbances: 0-None Headache: 0-None Present CIWA-Ar Total Score: 3
== END 2019-02-23 12:07 | disposition other institution (70) | DRG 773 ==
LOC: YASAS 12:43 → Y3N 17:50
PROVIDERS: ADMIT Allergy & Immunology; ATTEND Allergy & Immunology
PROC: HZ2ZZZZ Detoxification Services for Substance Abuse Treatment (ICD-10-PCS; principal; 2019-02-18)
DX: F10.230 Alcohol dependence with withdrawal, uncomplicated (principal); F11.23 Opioid dependence with withdrawal; F14.20 Cocaine dependence, uncomplicated; F17.210 Nicotine dependence, cigarettes, uncomplicated; F31.9 Bipolar disorder, unspecified; F41.9 Anxiety disorder, unspecified; F39 Unspecified mood [affective] disorder; F43.10 Post-traumatic stress disorder, unspecified; E11.69 Type 2 diabetes mellitus with other specified complication; Z79.4 Long term (current) use of insulin; I69.854 Hemiplegia and hemiparesis following other cerebrovascular disease affecting left non-dominant side; D72.829 Elevated white blood cell count, unspecified; B18.2 Chronic viral hepatitis C; G40.909 Epilepsy, unspecified, not intractable, without status epilepticus; E78.5 Hyperlipidemia, unspecified; Z88.5 Allergy status to narcotic agent
CPT/HCPCS: 36415; 80053; 82962; 85025; 85027; 86593

== ENCOUNTER 2019-02-23 12:18 | Inpatient (IN) | payer OTHER ==
[2019-02-23] MEDS ORDERED: MENTHOL/PHENOL 1 EACH UD MM PRN (16:47)
[2019-02-23] MEDS ORDERED: MAGNESIUM CITRATE 300 ML BOTTLE PO PRN (16:47)
[2019-02-23] MEDS ORDERED: MAG HYDROX/AL HYDROX/SIMETH 30 ML UNIT-DOSE CUP PO PRN (16:47)
[2019-02-23] MEDS ORDERED: ACETAMINOPHEN 325 MG TABLET (FP) PO PRN (16:47)
[2019-02-23] MEDS ORDERED: LOPERAMIDE HCL 2 MG CAPSULE PO PRN (16:47)
[2019-02-23] MEDS ORDERED: NICOTINE POLACRILEX 4 MG GUM BUC PRN (16:47)
[2019-02-23] MEDS ORDERED: IBUPROFEN 400 MG TABLET (FP) PO PRN ×2 (16:47→17:07)
[2019-02-23] MEDS ORDERED: P-EPHED 60MG/TRIPROLIDI 2.5MG TABLET PO PRN (16:47)
[2019-02-23] MEDS ORDERED: guaiFENesin 200 MG/10 ML 10 ML UNIT-DOSE CUPS PO PRN (16:47)
[2019-02-23] MEDS ORDERED: MAGNESIUM HYDROX 2400MG/30ML ORAL SUSPENSION 30 ML CUP PO PRN (16:47)
[2019-02-23] MEDS ORDERED: ALBUTEROL SO4 8 GM HFA INHALER IH PRN (16:50)
--- NOTE | 2019-02-23 16:54 | HP ---
[facility] Rehab Assess/Revision - Admission History Admitted to Rehab from: [facility] Date of Admission to Rehab: 02/23/2019 - Vital signs Vital Signs: NOTED; STABLE. - Findings Detox History & Physical reviewed: Yes Concur with findings: Yes Comments/Additional Findings: PATIENT'S MEDICAL / MEDICATION HISTORY REVIEWED PRIOR TO DISCHARGE FROM DETOX UNIT. PATIENT WAS DISCHARGED FROM DETOX UNIT TO BE TAKEN OVER TO REHAB UNIT IN STABLE MEDICAL CONDITION. Inpatient Rehab Admission - Rehab Decision to Admit Inpatient rehab admission?: Yes - Initial Determination Are CD services needed?: Yes Free of communicable disease: Yes Not in need of hospitalization: Yes - Rehab Admission Criteria Previous failed treatment: Yes Poor recovery environment: Yes Comorbidities: Yes Lacks judgement: No Patient is meeting Inpatient Rehab admission criteria:: Yes
[2019-02-23] MEDS ORDERED: KETOROLAC TROMETHAMINE 10 MG TABLET PO PRN (16:56)
[2019-02-23] MEDS: GABAPENTIN 300 MG CAPSULE (FP) PO SCH ×2 (18:10→21:48)
[2019-02-23] MEDS: levETIRAcetam XR 750 MG TAB PO SCH (21:48)
[2019-02-23] MEDS: THIAMINE HCL 100 MG TABLET (FP) PO SCH (21:48)
[2019-02-23] MEDS: INSULIN (LEVEMIR) 100 UNITS/ML UNITS SQ SCH (21:50)
[2019-02-23] MEDS: INSULIN SLIDING SCALE (NOVOLOG) 1 VIAL SQ SCH (21:53)
[2019-02-24] MEDS ORDERED: METHADONE HCL 10 MG TABLET PO SCH (06:00)
[2019-02-24] MEDS ORDERED: METHADONE HCL 5 MG TABLET ONE (06:35)
[2019-02-24] MEDS ORDERED: METHADONE HCL 10 MG TABLET ONE (06:36)
[2019-02-24] MEDS ORDERED: METHADONE HCL 40 MG DISPERSABLE TABLET ONE (06:36)
[2019-02-24] MEDS: METHADONE 40 MG, METHADONE 10 MG, METHADONE 5 MG PO SCH (06:38)
[2019-02-24] MEDS: GABAPENTIN 300 MG CAPSULE (FP) PO SCH ×3 (06:38→21:12)
[2019-02-24] MEDS: metFORMIN HCL 500 MG TABLET (FP) PO SCH ×2 (06:38→16:53)
[2019-02-24] MEDS: INSULIN SLIDING SCALE (NOVOLOG) 1 VIAL SQ SCH ×4 (06:46→21:14)
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
[2019-02-24] MEDS ORDERED: INSULIN (NOVOLOG) ASPART 100 UNITS/ML 10ML VIAL ONE ×2 (08:12→12:01)
[2019-02-24] MEDS: PRENATAL VITAMINS W/ FOLIC ACID TABLET (FP) PO SCH (10:36)
[2019-02-24] MEDS: ASPIRIN 81 MG CHEWABLE TABLETS PO SCH (10:36)
[2019-02-24] MEDS: PANTOPRAZOLE 40 MG TABLET (FP) PO SCH (10:36)
[2019-02-24] MEDS: levETIRAcetam XR 750 MG TAB PO SCH ×2 (10:36→21:13)
[2019-02-24] MEDS: MONTELUKAST NA 10 MG TABLET PO SCH (10:36)
[2019-02-24] MEDS: ESCITALOPRAM OXALATE 10 MG TABLET (FP) PO SCH (11:59)
[2019-02-24 12:03] LABS: BASO % 0.5 % (0-2.0); EOS % 5.5 % (0-4.5); HEMATOCRIT 36.2 % (35.4-49); HEMOGLOBIN 12.6 GM/dL (11.7-16.9); LYMPH % 12.4 % (8-40); MCH 31.6 pg (25.7-33.7); MCHC 34.8 g/dl (32.0-35.9); MEAN CELL VOLUME 90.9 fl (80-96); MEAN PLT VOLUME 8.4 fl (7.5-11.1); MONO % 8.1 % (3.8-10.2); NEUT % 73.5 % (42.8-82.8); PLATELET COUNT 206 K/MM3 (134-434); RBC 3.98 M/mm3 (4.00-5.60); RDW 12.7 % (11.9-15.9); WHITE BLOOD COUNT 12.9 K/mm3 (4.0-10.0)
--- NOTE | 2019-02-24 12:10 | PN ---
[facility] Progress Note Note: Pt reports he is on Keppra 750 mg po bid for seizure and klonopin 0.5 mg po bid (for anxiety from his psychiatric provide, Massiel Chung). Pt reports he had his medications with him on day of admission to detox. Pt's meds to be reviewed and followed up per protocol. Pt also c/o hx herniated disc to lower back and back pain. Pt is not currently on Suboxone but currently on Methadone 55 mg daily with [facility]. Pt has been seen by psych consult(see notes). Called pt's [facility] pharmacy several times at to verify pt's meds but got recordings and unable to get through to pharmacy or prescriber, Massiel Chung listed below. Others' Prescriptions Patient Name: Vijay Borrego Date: 1970 Address: [address] [place] [address] Sex: Male Rx Written Rx Dispensed Drug Quantity Days Supply Prescriber Name 02/16/2019 02/16/2019 clonazepam 0.5 mg tablet 60 30 Toloza, Soledad ( HELMET COVERER) 01/28/2019 01/28/2019 clonazepam 1 mg tablet 30 30 Toloza, Soledad (HELMET COVERER ) 10/20/2018 10/20/2018 clonazepam 0.5 mg tablet 60 30 Toloza, Soledad ( HELMET COVERER) 09/29/2018 09/29/2018 clonazepam 1 mg tablet 60 20 Toloza, Soledad (HELMET COVERER ) 09/18/2018 09/18/2018 clonazepam 0.5 mg tablet 60 30 Toloza, Soledad ( HELMET COVERER) 09/11/2018 09/11/2018 clonazepam 1 mg tablet 60 30 Toloza, Soledad (HELMET COVERER ) 08/21/2018 08/21/2018 clonazepam 1 mg tablet 60 30 Toloza, Soledad (HELMET COVERER ) Patient Name: Vijay Borrego Date: 1970 Address: [address] [place] [address] Sex: Male Rx Written Rx Dispensed Drug Quantity Days Supply Prescriber Name 08/08/2018 08/08/2018 buprenorphine-naloxone 8-2 mg sl tablet 30 15 Rylan Rebolledo MD 08/01/2018 08/01/2018 buprenorphine-naloxone 8-2 mg sl film 30 30 Rylan Rebolledo MD 07/31/2018 07/31/2018 buprenorphine-naloxone 8-2 mg sl tablet 4 2 BairdTran pulido Rosetta 07/24/2018 07/24/2018 clonazepam 1 mg tablet 60 30 Massiel Chung (HELMET COVERER ) 07/23/2018 07/23/2018 buprenorphine-naloxone 8-2 mg sl film 15 7 Rylan Rebolledo MD Patient Name: Vijay Borrego Date: 1970 Address: [address] [place] [address] Sex: Male Rx Written Rx Dispensed Drug Quantity Days Supply Prescriber Name 05/15/2018 05/15/2018 suboxone 8 mg-2 mg sl film 14 7 Maya Lowe 05/01/2018 05/01/2018 suboxone 8 mg-2 mg sl film 28 14 Dimitry Brown MD 04/16/2018 04/17/2018 suboxone 8 mg-2 mg sl film 28 14 Maya Lowe 03/27/2018 03/27/2018 suboxone 8 mg-2 mg sl film 21 7 Antonietta Durham (MD) 02/26/2018 03/17/2018 clonazepam 1 mg tablet 5 5 [facility] Patient Name: Vijay Borrego Date: 1970 Address: [place] [address] Sex: Male Rx Written Rx Dispensed Drug Quantity Days Supply Prescriber Name 03/27/2018 03/28/2018 chlordiazepoxide 25 mg capsule 8 2 Andrew Cheema 02/26/2018 02/28/2018 chlordiazepoxide 25 mg capsule 8 2 Andrew Cheema Vital Signs - 24 hr 02/24/19 02/24/19 03:30 06:42 Temperature 98.0 F Pulse Rate 97 H Respiratory 18 17 Rate Blood Pressure 103/68 Laboratory Tests 02/23/19 02/23/19 02/24/19 16:58 20:52 06:38 WBC RBC Hgb Hct MCV MCH MCHC RDW Plt Count MPV Absolute Neuts (auto) Neutrophils % Lymphocytes % Monocytes % Eosinophils % Basophils % Nucleated RBC % POC Glucometer 241 255 159 HIV 1&2 Antibody Screen HIV P24 Antigen 02/24/19 02/24/19 02/24/19 08:35 08:35 12:00 WBC 12.9 H RBC 3.98 L Hgb 12.6 Hct 36.2 MCV 90.9 MCH 31.6 MCHC 34.8 RDW 12.7 Plt Count 206 MPV 8.4 Absolute Neuts (auto) 9.5 H Neutrophils % 73.5 Lymphocytes % 12.4 D Monocytes % 8.1 Eosinophils % 5.5 H Basophils % 0.5 Nucleated RBC % 0 POC Glucometer 343 HIV 1&2 Antibody Screen Negative HIV P24 Antigen Negative Alert o x 3 nad oob ambulating with steady gait. A/P seizure disorder(on Keppra) D/w pt will verify his meds and act per protocol Lidocaine patch 5% apply as directed. Keppra level to be done today and result pending.
[2019-02-24] MEDS: QUEtiapine FUMARATE 25 MG TABLET (FP) PO SCH ×2 (13:32→21:13)
[2019-02-24] MEDS: LIDOCAINE 5% TOPICAL PATCH TP SCH (16:14)
[2019-02-24] MEDS: INSULIN (LEVEMIR) 100 UNITS/ML UNITS SQ SCH (21:13)
[2019-02-24] MEDS: LIDOCAINE PATCH REMOVAL MC SCH (21:13)
[2019-02-24] MEDS: THIAMINE HCL 100 MG TABLET (FP) PO SCH (21:14)
[2019-02-24] MEDS: MELATONIN 5 MG TABLETS PO PRN (21:14)
[2019-02-25] MEDS ORDERED: METHADONE HCL 5 MG TABLET ONE (02:59)
[2019-02-25] MEDS ORDERED: METHADONE HCL 10 MG TABLET ONE (02:59)
[2019-02-25] MEDS ORDERED: METHADONE HCL 40 MG DISPERSABLE TABLET ONE (02:59)
[2019-02-25] MEDS: METHADONE 40 MG, METHADONE 10 MG, METHADONE 5 MG PO SCH (06:20)
[2019-02-25] MEDS: metFORMIN HCL 500 MG TABLET (FP) PO SCH ×2 (06:20→16:43)
[2019-02-25] MEDS: GABAPENTIN 300 MG CAPSULE (FP) PO SCH ×3 (06:20→21:51)
[2019-02-25] MEDS ORDERED: INSULIN (NOVOLOG) ASPART 100 UNITS/ML 10ML VIAL ONE ×2 (06:59→12:01)
[2019-02-25] MEDS: INSULIN SLIDING SCALE (NOVOLOG) 1 VIAL SQ SCH ×4 (07:38→21:56)
[2019-02-25] MEDS: levETIRAcetam XR 750 MG TAB PO SCH (10:49)
[2019-02-25] MEDS: ESCITALOPRAM OXALATE 10 MG TABLET (FP) PO SCH (10:49)
[2019-02-25] MEDS: PRENATAL VITAMINS W/ FOLIC ACID TABLET (FP) PO SCH (10:49)
[2019-02-25] MEDS: MONTELUKAST NA 10 MG TABLET PO SCH (10:49)
[2019-02-25] MEDS: LIDOCAINE 5% TOPICAL PATCH TP SCH (10:49)
[2019-02-25] MEDS: ASPIRIN 81 MG CHEWABLE TABLETS PO SCH (10:49)
[2019-02-25] MEDS: QUEtiapine FUMARATE 25 MG TABLET (FP) PO SCH ×2 (10:50→21:53)
[2019-02-25] MEDS: PANTOPRAZOLE 40 MG TABLET (FP) PO SCH (10:51)
[2019-02-25] MEDS ORDERED: KETOROLAC TROMETHAMINE 10 MG TABLET PO PRN (12:23)
[2019-02-25] MEDS: levETIRAcetam 250 MG TABLET (FP) PO SCH (21:50)
[2019-02-25] MEDS: THIAMINE HCL 100 MG TABLET (FP) PO SCH (21:51)
[2019-02-25] MEDS: clonazePAM 0.5 MG TABLET PO SCH (21:53)
[2019-02-25] MEDS: INSULIN (LEVEMIR) 100 UNITS/ML UNITS SQ SCH (21:56)
[2019-02-25] MEDS: LIDOCAINE PATCH REMOVAL MC SCH (21:56)
[2019-02-26] MEDS ORDERED: METHADONE HCL 5 MG TABLET ONE (06:30)
[2019-02-26] MEDS ORDERED: METHADONE HCL 40 MG DISPERSABLE TABLET ONE (06:31)
[2019-02-26] MEDS ORDERED: METHADONE HCL 10 MG TABLET ONE (06:31)
[2019-02-26] MEDS: METHADONE 40 MG, METHADONE 10 MG, METHADONE 5 MG PO SCH (06:32)
[2019-02-26] MEDS: metFORMIN HCL 500 MG TABLET (FP) PO SCH ×2 (06:34→16:32)
[2019-02-26] MEDS: GABAPENTIN 300 MG CAPSULE (FP) PO SCH ×3 (06:35→21:36)
[2019-02-26] MEDS ORDERED: INSULIN (NOVOLOG) ASPART 100 UNITS/ML 10ML VIAL ONE (06:54)
[2019-02-26] MEDS: INSULIN SLIDING SCALE (NOVOLOG) 1 VIAL SQ SCH ×4 (08:00→21:38)
--- NOTE | 2019-02-26 08:39 | PN ---
[facility] Progress Note Note: Late Entry: Received a call back yesterday from Mr. Borrego's Psychiatric provider Massiel ChungPsychJOHNY who manages patient's meds at [facility] in the [place]. Ms Chung informed this job specification writer that pt is on downward management of his klonopin Rx with hope to wean him off. She recommended he continues here and follow up with her/clinic after discharge. She also confirmed that pt is on Regular Keppra 750 mg po bid for seizure and Gabapentin 500 mg three times a day to help ease with klonopin taper. Also relayed that pt is on Lexapro 10 mg po daily and seroquel 25 mg po twice a day. Reports pt is no longer on Celexa. Pt brought his medication bottles with him on admission except keppra Rx. Discussed findings with Dr. Rice and pt's care will be continued per protocol.
[2019-02-26] MEDS: PRENATAL VITAMINS W/ FOLIC ACID TABLET (FP) PO SCH (10:46)
[2019-02-26] MEDS: levETIRAcetam 250 MG TABLET (FP) PO SCH ×2 (10:47→21:39)
[2019-02-26] MEDS: LIDOCAINE 5% TOPICAL PATCH TP SCH (10:47)
[2019-02-26] MEDS: MONTELUKAST NA 10 MG TABLET PO SCH (10:47)
[2019-02-26] MEDS: ESCITALOPRAM OXALATE 10 MG TABLET (FP) PO SCH (10:47)
[2019-02-26] MEDS: ASPIRIN 81 MG CHEWABLE TABLETS PO SCH (10:47)
[2019-02-26] MEDS: PANTOPRAZOLE 40 MG TABLET (FP) PO SCH (10:47)
[2019-02-26] MEDS: QUEtiapine FUMARATE 25 MG TABLET (FP) PO SCH ×2 (10:47→21:36)
[2019-02-26] MEDS: clonazePAM 0.5 MG TABLET PO SCH (10:49)
[2019-02-26] MEDS: INSULIN (LEVEMIR) 100 UNITS/ML UNITS SQ SCH (21:35)
[2019-02-26] MEDS: THIAMINE HCL 100 MG TABLET (FP) PO SCH (21:36)
[2019-02-26] MEDS: LIDOCAINE PATCH REMOVAL MC SCH (21:37)
[2019-02-27] MEDS ORDERED: METHADONE HCL 10 MG TABLET ONE (06:08)
[2019-02-27] MEDS ORDERED: METHADONE HCL 5 MG TABLET ONE (06:08)
[2019-02-27] MEDS: METHADONE 40 MG, METHADONE 10 MG, METHADONE 5 MG PO SCH (06:09)
[2019-02-27] MEDS ORDERED: METHADONE HCL 40 MG DISPERSABLE TABLET ONE (06:09)
[2019-02-27] MEDS: GABAPENTIN 300 MG CAPSULE (FP) PO SCH ×3 (06:11→21:12)
[2019-02-27] MEDS: metFORMIN HCL 500 MG TABLET (FP) PO SCH ×2 (06:11→16:37)
[2019-02-27] MEDS ORDERED: INSULIN (NOVOLOG) ASPART 100 UNITS/ML 10ML VIAL ONE ×3 (07:11→16:09)
[2019-02-27] MEDS: INSULIN SLIDING SCALE (NOVOLOG) 1 VIAL SQ SCH ×4 (07:40→21:13)
[2019-02-27] MEDS: PANTOPRAZOLE 40 MG TABLET (FP) PO SCH (11:07)
[2019-02-27] MEDS: ESCITALOPRAM OXALATE 10 MG TABLET (FP) PO SCH (11:07)
[2019-02-27] MEDS: levETIRAcetam 250 MG TABLET (FP) PO SCH ×2 (11:07→21:10)
[2019-02-27] MEDS: MONTELUKAST NA 10 MG TABLET PO SCH (11:07)
[2019-02-27] MEDS: ASPIRIN 81 MG CHEWABLE TABLETS PO SCH (11:08)
[2019-02-27] MEDS: LIDOCAINE 5% TOPICAL PATCH TP SCH (11:08)
[2019-02-27] MEDS: QUEtiapine FUMARATE 25 MG TABLET (FP) PO SCH ×2 (11:08→21:12)
[2019-02-27] MEDS: PRENATAL VITAMINS W/ FOLIC ACID TABLET (FP) PO SCH (11:09)
[2019-02-27] MEDS: clonazePAM 0.5 MG TABLET PO PRN ×2 (11:17→21:13)
[2019-02-27] MEDS: THIAMINE HCL 100 MG TABLET (FP) PO SCH (21:10)
[2019-02-27] MEDS: INSULIN (LEVEMIR) 100 UNITS/ML UNITS SQ SCH (21:11)
[2019-02-27] MEDS: LIDOCAINE PATCH REMOVAL MC SCH (21:12)
[2019-02-27] MEDS: CYCLOBENZAPRINE HCL 10 MG TABLET (FP) PO PRN (21:12)
[2019-02-28] MEDS ORDERED: METHADONE HCL 40 MG DISPERSABLE TABLET ONE (06:03)
[2019-02-28] MEDS ORDERED: METHADONE HCL 5 MG TABLET ONE (06:03)
[2019-02-28] MEDS ORDERED: METHADONE HCL 10 MG TABLET ONE (06:03)
[2019-02-28] MEDS: METHADONE 40 MG, METHADONE 10 MG, METHADONE 5 MG PO SCH (06:23)
[2019-02-28] MEDS: metFORMIN HCL 500 MG TABLET (FP) PO SCH ×2 (06:23→16:30)
[2019-02-28] MEDS: GABAPENTIN 300 MG CAPSULE (FP) PO SCH ×3 (06:23→21:42)
[2019-02-28] MEDS: CYCLOBENZAPRINE HCL 10 MG TABLET (FP) PO PRN (06:23)
[2019-02-28] MEDS: clonazePAM 0.5 MG TABLET PO PRN (06:23)
[2019-02-28] MEDS ORDERED: INSULIN (NOVOLOG) ASPART 100 UNITS/ML 10ML VIAL ONE ×4 (06:55→21:55)
[2019-02-28] MEDS: INSULIN SLIDING SCALE (NOVOLOG) 1 VIAL SQ SCH ×4 (07:40→21:45)
[2019-02-28] MEDS: PANTOPRAZOLE 40 MG TABLET (FP) PO SCH (10:22)
[2019-02-28] MEDS: MONTELUKAST NA 10 MG TABLET PO SCH (10:22)
[2019-02-28] MEDS: PRENATAL VITAMINS W/ FOLIC ACID TABLET (FP) PO SCH (10:22)
[2019-02-28] MEDS: ASPIRIN 81 MG CHEWABLE TABLETS PO SCH (10:22)
[2019-02-28] MEDS: QUEtiapine FUMARATE 25 MG TABLET (FP) PO SCH ×2 (10:22→21:42)
[2019-02-28] MEDS: ESCITALOPRAM OXALATE 10 MG TABLET (FP) PO SCH (10:22)
[2019-02-28] MEDS: LIDOCAINE 5% TOPICAL PATCH TP SCH (10:24)
[2019-02-28] MEDS: levETIRAcetam 250 MG TABLET (FP) PO SCH ×2 (10:56→21:43)
[2019-02-28] MEDS: THIAMINE HCL 100 MG TABLET (FP) PO SCH (21:42)
[2019-02-28] MEDS: INSULIN (LEVEMIR) 100 UNITS/ML UNITS SQ SCH (21:44)
[2019-02-28] MEDS: LIDOCAINE PATCH REMOVAL MC SCH (21:45)
[2019-03-01] MEDS ORDERED: METHADONE HCL 40 MG DISPERSABLE TABLET ONE (06:03)
[2019-03-01] MEDS ORDERED: METHADONE HCL 5 MG TABLET ONE (06:03)
[2019-03-01] MEDS ORDERED: METHADONE HCL 10 MG TABLET ONE (06:03)
[2019-03-01] MEDS: METHADONE 40 MG, METHADONE 10 MG, METHADONE 5 MG PO SCH (06:25)
[2019-03-01] MEDS: CYCLOBENZAPRINE HCL 10 MG TABLET (FP) PO PRN ×2 (06:25→14:11)
[2019-03-01] MEDS: metFORMIN HCL 500 MG TABLET (FP) PO SCH ×2 (06:27→16:48)
[2019-03-01] MEDS: GABAPENTIN 300 MG CAPSULE (FP) PO SCH ×3 (06:27→21:44)
[2019-03-01] MEDS ORDERED: INSULIN (NOVOLOG) ASPART 100 UNITS/ML 10ML VIAL ONE ×3 (06:33→21:56)
[2019-03-01] MEDS: INSULIN SLIDING SCALE (NOVOLOG) 1 VIAL SQ SCH ×4 (08:03→21:46)
[2019-03-01] MEDS: PRENATAL VITAMINS W/ FOLIC ACID TABLET (FP) PO SCH (10:12)
[2019-03-01] MEDS: MONTELUKAST NA 10 MG TABLET PO SCH (10:12)
[2019-03-01] MEDS: QUEtiapine FUMARATE 25 MG TABLET (FP) PO SCH ×2 (10:12→21:44)
[2019-03-01] MEDS: ASPIRIN 81 MG CHEWABLE TABLETS PO SCH (10:12)
[2019-03-01] MEDS: ESCITALOPRAM OXALATE 10 MG TABLET (FP) PO SCH (10:12)
[2019-03-01] MEDS: PANTOPRAZOLE 40 MG TABLET (FP) PO SCH (10:12)
[2019-03-01] MEDS: LIDOCAINE 5% TOPICAL PATCH TP SCH (10:13)
[2019-03-01] MEDS: clonazePAM 0.5 MG TABLET PO PRN (10:14)
[2019-03-01] MEDS: levETIRAcetam 250 MG TABLET (FP) PO SCH ×2 (10:52→21:45)
[2019-03-01] MEDS: INSULIN (LEVEMIR) 100 UNITS/ML UNITS SQ SCH (21:44)
[2019-03-01] MEDS: THIAMINE HCL 100 MG TABLET (FP) PO SCH (21:44)
[2019-03-01] MEDS: LIDOCAINE PATCH REMOVAL MC SCH (21:46)
[2019-03-02] MEDS ORDERED: METHADONE HCL 5 MG TABLET ONE (06:23)
[2019-03-02] MEDS ORDERED: METHADONE HCL 40 MG DISPERSABLE TABLET ONE (06:24)
[2019-03-02] MEDS ORDERED: METHADONE HCL 10 MG TABLET ONE (06:24)
[2019-03-02] MEDS: METHADONE 40 MG, METHADONE 10 MG, METHADONE 5 MG PO SCH (06:39)
[2019-03-02] MEDS: metFORMIN HCL 500 MG TABLET (FP) PO SCH ×2 (06:39→16:59)
[2019-03-02] MEDS: clonazePAM 0.5 MG TABLET PO PRN ×2 (06:40→21:31)
[2019-03-02] MEDS: CYCLOBENZAPRINE HCL 10 MG TABLET (FP) PO PRN ×2 (06:40→21:31)
[2019-03-02] MEDS: GABAPENTIN 300 MG CAPSULE (FP) PO SCH ×3 (06:40→21:29)
[2019-03-02] MEDS ORDERED: INSULIN (NOVOLOG) ASPART 100 UNITS/ML 10ML VIAL ONE ×4 (07:59→21:27)
[2019-03-02] MEDS: INSULIN SLIDING SCALE (NOVOLOG) 1 VIAL SQ SCH ×4 (08:03→21:29)
[2019-03-02] MEDS: PRENATAL VITAMINS W/ FOLIC ACID TABLET (FP) PO SCH (10:46)
[2019-03-02] MEDS: levETIRAcetam 250 MG TABLET (FP) PO SCH ×2 (10:46→21:28)
[2019-03-02] MEDS: ESCITALOPRAM OXALATE 10 MG TABLET (FP) PO SCH (10:46)
[2019-03-02] MEDS: PANTOPRAZOLE 40 MG TABLET (FP) PO SCH (10:46)
[2019-03-02] MEDS: QUEtiapine FUMARATE 25 MG TABLET (FP) PO SCH ×2 (10:46→21:30)
[2019-03-02] MEDS: ASPIRIN 81 MG CHEWABLE TABLETS PO SCH (10:46)
[2019-03-02] MEDS: MONTELUKAST NA 10 MG TABLET PO SCH (10:46)
[2019-03-02] MEDS: LIDOCAINE 5% TOPICAL PATCH TP SCH (10:47)
[2019-03-02] MEDS: INSULIN (LEVEMIR) 100 UNITS/ML UNITS SQ SCH (21:29)
[2019-03-02] MEDS: LIDOCAINE PATCH REMOVAL MC SCH (21:29)
[2019-03-02] MEDS: THIAMINE HCL 100 MG TABLET (FP) PO SCH (21:31)
[2019-03-03] MEDS ORDERED: METHADONE HCL 5 MG TABLET ONE (05:49)
[2019-03-03] MEDS ORDERED: METHADONE HCL 10 MG TABLET ONE (05:49)
[2019-03-03] MEDS ORDERED: METHADONE HCL 40 MG DISPERSABLE TABLET ONE (05:50)
[2019-03-03] MEDS ORDERED: METHADONE HCL 10 MG TABLET PO SCH (06:00)
[2019-03-03] MEDS: GABAPENTIN 300 MG CAPSULE (FP) PO SCH ×3 (06:01→22:10)
[2019-03-03] MEDS: metFORMIN HCL 500 MG TABLET (FP) PO SCH ×2 (06:01→17:01)
[2019-03-03] MEDS: METHADONE 40 MG, METHADONE 10 MG, METHADONE 5 MG PO SCH (06:02)
[2019-03-03] MEDS: INSULIN SLIDING SCALE (NOVOLOG) 1 VIAL SQ SCH ×4 (06:46→22:09)
[2019-03-03] MEDS: CYCLOBENZAPRINE HCL 10 MG TABLET (FP) PO PRN ×2 (10:43→22:11)
[2019-03-03] MEDS: levETIRAcetam 250 MG TABLET (FP) PO SCH ×2 (10:43→22:09)
[2019-03-03] MEDS: PRENATAL VITAMINS W/ FOLIC ACID TABLET (FP) PO SCH (10:43)
[2019-03-03] MEDS: clonazePAM 0.5 MG TABLET PO PRN ×2 (10:43→22:11)
[2019-03-03] MEDS: PANTOPRAZOLE 40 MG TABLET (FP) PO SCH (10:43)
[2019-03-03] MEDS: ASPIRIN 81 MG CHEWABLE TABLETS PO SCH (10:43)
[2019-03-03] MEDS: QUEtiapine FUMARATE 25 MG TABLET (FP) PO SCH ×2 (10:43→22:10)
[2019-03-03] MEDS: MONTELUKAST NA 10 MG TABLET PO SCH (10:43)
[2019-03-03] MEDS: ESCITALOPRAM OXALATE 10 MG TABLET (FP) PO SCH (10:43)
[2019-03-03] MEDS: LIDOCAINE 5% TOPICAL PATCH TP SCH (10:45)
[2019-03-03] MEDS ORDERED: INSULIN (NOVOLOG) ASPART 100 UNITS/ML 10ML VIAL ONE ×2 (11:52→16:22)
[2019-03-03] MEDS: LIDOCAINE PATCH REMOVAL MC SCH (22:09)
[2019-03-03] MEDS: INSULIN (LEVEMIR) 100 UNITS/ML UNITS SQ SCH (22:09)
[2019-03-03] MEDS: MELATONIN 5 MG TABLETS PO PRN (22:11)
[2019-03-03] MEDS: THIAMINE HCL 100 MG TABLET (FP) PO SCH (22:12)
[2019-03-04] MEDS ORDERED: METHADONE HCL 5 MG TABLET ONE (06:26)
[2019-03-04] MEDS ORDERED: METHADONE HCL 10 MG TABLET ONE (06:26)
[2019-03-04] MEDS ORDERED: METHADONE HCL 40 MG DISPERSABLE TABLET ONE (06:26)
[2019-03-04] MEDS: METHADONE 40 MG, METHADONE 10 MG, METHADONE 5 MG PO SCH (06:31)
[2019-03-04] MEDS: GABAPENTIN 300 MG CAPSULE (FP) PO SCH ×3 (06:33→21:34)
[2019-03-04] MEDS: metFORMIN HCL 500 MG TABLET (FP) PO SCH ×2 (07:41→16:37)
[2019-03-04] MEDS ORDERED: INSULIN (NOVOLOG) ASPART 100 UNITS/ML 10ML VIAL ONE ×2 (07:45→16:17)
[2019-03-04] MEDS: INSULIN SLIDING SCALE (NOVOLOG) 1 VIAL SQ SCH ×4 (07:47→21:35)
[2019-03-04] MEDS: PRENATAL VITAMINS W/ FOLIC ACID TABLET (FP) PO SCH (10:59)
[2019-03-04] MEDS: PANTOPRAZOLE 40 MG TABLET (FP) PO SCH (11:00)
[2019-03-04] MEDS: ASPIRIN 81 MG CHEWABLE TABLETS PO SCH (11:00)
[2019-03-04] MEDS: ESCITALOPRAM OXALATE 10 MG TABLET (FP) PO SCH (11:00)
[2019-03-04] MEDS: levETIRAcetam 250 MG TABLET (FP) PO SCH ×2 (11:00→21:32)
[2019-03-04] MEDS: QUEtiapine FUMARATE 25 MG TABLET (FP) PO SCH ×2 (11:00→21:34)
[2019-03-04] MEDS: LIDOCAINE 5% TOPICAL PATCH TP SCH (11:00)
[2019-03-04] MEDS: MONTELUKAST NA 10 MG TABLET PO SCH (11:00)
[2019-03-04] MEDS: clonazePAM 0.5 MG TABLET PO PRN ×2 (11:01→21:35)
[2019-03-04] MEDS: LIDOCAINE PATCH REMOVAL MC SCH (21:33)
[2019-03-04] MEDS: INSULIN (LEVEMIR) 100 UNITS/ML UNITS SQ SCH (21:33)
[2019-03-04] MEDS: CYCLOBENZAPRINE HCL 10 MG TABLET (FP) PO PRN (21:34)
[2019-03-04] MEDS: THIAMINE HCL 100 MG TABLET (FP) PO SCH (21:52)
[2019-03-05] MEDS ORDERED: METHADONE HCL 5 MG TABLET ONE (05:53)
[2019-03-05] MEDS ORDERED: METHADONE HCL 40 MG DISPERSABLE TABLET ONE (05:54)
[2019-03-05] MEDS ORDERED: METHADONE HCL 10 MG TABLET ONE (05:54)
[2019-03-05] MEDS: GABAPENTIN 300 MG CAPSULE (FP) PO SCH ×3 (06:22→22:00)
[2019-03-05] MEDS: METHADONE 40 MG, METHADONE 10 MG, METHADONE 5 MG PO SCH (06:22)
[2019-03-05] MEDS: metFORMIN HCL 500 MG TABLET (FP) PO SCH ×2 (07:56→16:51)
[2019-03-05] MEDS: INSULIN SLIDING SCALE (NOVOLOG) 1 VIAL SQ SCH ×4 (07:58→22:01)
[2019-03-05] MEDS: ASPIRIN 81 MG CHEWABLE TABLETS PO SCH (10:50)
[2019-03-05] MEDS: levETIRAcetam 250 MG TABLET (FP) PO SCH ×2 (10:50→22:00)
[2019-03-05] MEDS: ESCITALOPRAM OXALATE 10 MG TABLET (FP) PO SCH (10:50)
[2019-03-05] MEDS: QUEtiapine FUMARATE 25 MG TABLET (FP) PO SCH ×2 (10:50→22:00)
[2019-03-05] MEDS: PRENATAL VITAMINS W/ FOLIC ACID TABLET (FP) PO SCH (10:50)
[2019-03-05] MEDS: MONTELUKAST NA 10 MG TABLET PO SCH (10:50)
[2019-03-05] MEDS: LIDOCAINE 5% TOPICAL PATCH TP SCH (10:51)
[2019-03-05] MEDS: clonazePAM 0.5 MG TABLET PO PRN ×2 (10:52→21:59)
[2019-03-05] MEDS: PANTOPRAZOLE 40 MG TABLET (FP) PO SCH (10:52)
[2019-03-05] MEDS ORDERED: INSULIN (NOVOLOG) ASPART 100 UNITS/ML 10ML VIAL ONE ×2 (11:58→16:41)
[2019-03-05] MEDS: CYCLOBENZAPRINE HCL 10 MG TABLET (FP) PO PRN (21:59)
[2019-03-05] MEDS: INSULIN (LEVEMIR) 100 UNITS/ML UNITS SQ SCH (22:01)
[2019-03-05] MEDS: LIDOCAINE PATCH REMOVAL MC SCH (22:01)
[2019-03-05] MEDS: THIAMINE HCL 100 MG TABLET (FP) PO SCH (22:02)
[2019-03-06] MEDS ORDERED: METHADONE HCL 5 MG TABLET ONE (05:59)
[2019-03-06] MEDS ORDERED: METHADONE HCL 40 MG DISPERSABLE TABLET ONE (06:00)
[2019-03-06] MEDS ORDERED: METHADONE HCL 10 MG TABLET ONE (06:00)
[2019-03-06] MEDS: METHADONE 40 MG, METHADONE 10 MG, METHADONE 5 MG PO SCH (06:00)
[2019-03-06] MEDS: metFORMIN HCL 500 MG TABLET (FP) PO SCH ×2 (06:01→17:12)
[2019-03-06] MEDS: GABAPENTIN 300 MG CAPSULE (FP) PO SCH ×3 (06:01→21:22)
[2019-03-06] MEDS: INSULIN SLIDING SCALE (NOVOLOG) 1 VIAL SQ SCH ×4 (08:22→21:28)
[2019-03-06] MEDS: ASPIRIN 81 MG CHEWABLE TABLETS PO SCH (10:43)
[2019-03-06] MEDS: QUEtiapine FUMARATE 25 MG TABLET (FP) PO SCH ×2 (10:43→21:23)
[2019-03-06] MEDS: ESCITALOPRAM OXALATE 10 MG TABLET (FP) PO SCH (10:43)
[2019-03-06] MEDS: levETIRAcetam 250 MG TABLET (FP) PO SCH ×2 (10:43→21:22)
[2019-03-06] MEDS: MONTELUKAST NA 10 MG TABLET PO SCH (10:43)
[2019-03-06] MEDS: PRENATAL VITAMINS W/ FOLIC ACID TABLET (FP) PO SCH (10:43)
[2019-03-06] MEDS: PANTOPRAZOLE 40 MG TABLET (FP) PO SCH (10:43)
[2019-03-06] MEDS: clonazePAM 0.5 MG TABLET PO PRN (10:44)
[2019-03-06] MEDS: LIDOCAINE 5% TOPICAL PATCH TP SCH (11:00)
[2019-03-06] MEDS ORDERED: INSULIN (NOVOLOG) ASPART 100 UNITS/ML 10ML VIAL ONE ×2 (12:07→17:06)
[2019-03-06] MEDS: THIAMINE HCL 100 MG TABLET (FP) PO SCH (21:23)
[2019-03-06] MEDS: MELATONIN 5 MG TABLETS PO PRN (21:24)
[2019-03-06] MEDS: INSULIN (LEVEMIR) 100 UNITS/ML UNITS SQ SCH (21:28)
[2019-03-06] MEDS: LIDOCAINE PATCH REMOVAL MC SCH (22:13)
[2019-03-07] MEDS ORDERED: METHADONE HCL 40 MG DISPERSABLE TABLET ONE (05:44)
[2019-03-07] MEDS ORDERED: METHADONE HCL 5 MG TABLET ONE (05:44)
[2019-03-07] MEDS ORDERED: METHADONE HCL 10 MG TABLET ONE (05:44)
[2019-03-07] MEDS: METHADONE 40 MG, METHADONE 10 MG, METHADONE 5 MG PO SCH (06:27)
[2019-03-07] MEDS: GABAPENTIN 300 MG CAPSULE (FP) PO SCH ×3 (06:27→21:53)
[2019-03-07] MEDS: metFORMIN HCL 500 MG TABLET (FP) PO SCH ×2 (06:31→16:29)
[2019-03-07] MEDS ORDERED: INSULIN (NOVOLOG) ASPART 100 UNITS/ML 10ML VIAL ONE ×3 (06:33→16:08)
[2019-03-07] MEDS: INSULIN SLIDING SCALE (NOVOLOG) 1 VIAL SQ SCH ×4 (07:45→22:01)
[2019-03-07] MEDS: levETIRAcetam 250 MG TABLET (FP) PO SCH ×2 (10:11→21:53)
[2019-03-07] MEDS: PRENATAL VITAMINS W/ FOLIC ACID TABLET (FP) PO SCH (10:11)
[2019-03-07] MEDS: PANTOPRAZOLE 40 MG TABLET (FP) PO SCH (10:12)
[2019-03-07] MEDS: MONTELUKAST NA 10 MG TABLET PO SCH (10:12)
[2019-03-07] MEDS: clonazePAM 0.5 MG TABLET PO PRN ×2 (10:12→21:55)
[2019-03-07] MEDS: CYCLOBENZAPRINE HCL 10 MG TABLET (FP) PO PRN ×2 (10:12→21:55)
[2019-03-07] MEDS: LIDOCAINE 5% TOPICAL PATCH TP SCH (10:12)
[2019-03-07] MEDS: QUEtiapine FUMARATE 25 MG TABLET (FP) PO SCH ×2 (10:12→21:53)
[2019-03-07] MEDS: ASPIRIN 81 MG CHEWABLE TABLETS PO SCH (10:12)
[2019-03-07] MEDS: ESCITALOPRAM OXALATE 10 MG TABLET (FP) PO SCH (10:12)
[2019-03-07] MEDS: MELATONIN 5 MG TABLETS PO PRN (21:53)
[2019-03-07] MEDS: THIAMINE HCL 100 MG TABLET (FP) PO SCH (21:53)
[2019-03-07] MEDS: LIDOCAINE PATCH REMOVAL MC SCH (22:01)
[2019-03-07] MEDS: INSULIN (LEVEMIR) 100 UNITS/ML UNITS SQ SCH (22:01)
[2019-03-08] MEDS ORDERED: METHADONE HCL 40 MG DISPERSABLE TABLET ONE (03:07)
[2019-03-08] MEDS ORDERED: METHADONE HCL 5 MG TABLET ONE (03:07)
[2019-03-08] MEDS ORDERED: METHADONE HCL 10 MG TABLET ONE (03:07)
[2019-03-08] MEDS: metFORMIN HCL 500 MG TABLET (FP) PO SCH ×2 (06:10→16:27)
[2019-03-08] MEDS: GABAPENTIN 300 MG CAPSULE (FP) PO SCH ×3 (06:10→21:24)
[2019-03-08] MEDS: METHADONE 40 MG, METHADONE 10 MG, METHADONE 5 MG PO SCH (06:11)
[2019-03-08] MEDS: INSULIN SLIDING SCALE (NOVOLOG) 1 VIAL SQ SCH ×5 (07:44→21:20)
[2019-03-08] MEDS ORDERED: INSULIN (NOVOLOG) ASPART 100 UNITS/ML 10ML VIAL ONE (09:27)
[2019-03-08] MEDS: levETIRAcetam 250 MG TABLET (FP) PO SCH ×2 (10:45→21:23)
[2019-03-08] MEDS: ASPIRIN 81 MG CHEWABLE TABLETS PO SCH (10:46)
[2019-03-08] MEDS: PANTOPRAZOLE 40 MG TABLET (FP) PO SCH (10:46)
[2019-03-08] MEDS: CYCLOBENZAPRINE HCL 10 MG TABLET (FP) PO PRN ×2 (10:46→21:23)
[2019-03-08] MEDS: PRENATAL VITAMINS W/ FOLIC ACID TABLET (FP) PO SCH (10:47)
[2019-03-08] MEDS: ESCITALOPRAM OXALATE 10 MG TABLET (FP) PO SCH (10:47)
[2019-03-08] MEDS: LIDOCAINE 5% TOPICAL PATCH TP SCH (10:47)
[2019-03-08] MEDS: MONTELUKAST NA 10 MG TABLET PO SCH (10:47)
[2019-03-08] MEDS: QUEtiapine FUMARATE 25 MG TABLET (FP) PO SCH ×2 (10:47→21:24)
[2019-03-08] MEDS: clonazePAM 0.5 MG TABLET PO PRN ×2 (11:26→21:23)
[2019-03-08] MEDS: INSULIN (LEVEMIR) 100 UNITS/ML UNITS SQ SCH (21:20)
[2019-03-08] MEDS: THIAMINE HCL 100 MG TABLET (FP) PO SCH (21:23)
[2019-03-08] MEDS: LIDOCAINE PATCH REMOVAL MC SCH (21:23)
[2019-03-08] MEDS: MELATONIN 5 MG TABLETS PO PRN (21:24)
[2019-03-09] MEDS ORDERED: METHADONE HCL 10 MG TABLET PO SCH (06:00)
[2019-03-09] MEDS ORDERED: METHADONE HCL 40 MG DISPERSABLE TABLET ONE (06:08)
[2019-03-09] MEDS ORDERED: METHADONE HCL 10 MG TABLET ONE (06:08)
[2019-03-09] MEDS ORDERED: METHADONE HCL 5 MG TABLET ONE (06:08)
[2019-03-09] MEDS: GABAPENTIN 300 MG CAPSULE (FP) PO SCH ×3 (06:10→21:56)
[2019-03-09] MEDS: metFORMIN HCL 500 MG TABLET (FP) PO SCH ×2 (06:11→16:43)
[2019-03-09] MEDS: METHADONE 40 MG, METHADONE 10 MG, METHADONE 5 MG PO SCH (06:11)
[2019-03-09] MEDS: INSULIN SLIDING SCALE (NOVOLOG) 1 VIAL SQ SCH ×4 (07:06→21:57)
[2019-03-09] MEDS: LIDOCAINE 5% TOPICAL PATCH TP SCH (11:00)
[2019-03-09] MEDS: MONTELUKAST NA 10 MG TABLET PO SCH (11:08)
[2019-03-09] MEDS: QUEtiapine FUMARATE 25 MG TABLET (FP) PO SCH ×2 (11:08→21:56)
[2019-03-09] MEDS: PRENATAL VITAMINS W/ FOLIC ACID TABLET (FP) PO SCH (11:08)
[2019-03-09] MEDS: ESCITALOPRAM OXALATE 10 MG TABLET (FP) PO SCH (11:08)
[2019-03-09] MEDS: PANTOPRAZOLE 40 MG TABLET (FP) PO SCH (11:08)
[2019-03-09] MEDS: ASPIRIN 81 MG CHEWABLE TABLETS PO SCH (11:08)
[2019-03-09] MEDS: clonazePAM 0.5 MG TABLET PO PRN ×2 (11:10→21:58)
[2019-03-09] MEDS: levETIRAcetam 250 MG TABLET (FP) PO SCH ×2 (11:10→21:56)
[2019-03-09] MEDS ORDERED: INSULIN (NOVOLOG) ASPART 100 UNITS/ML 10ML VIAL ONE (12:08)
[2019-03-09] MEDS: INSULIN (LEVEMIR) 100 UNITS/ML UNITS SQ SCH (21:54)
[2019-03-09] MEDS: THIAMINE HCL 100 MG TABLET (FP) PO SCH (21:56)
[2019-03-09] MEDS: LIDOCAINE PATCH REMOVAL MC SCH (21:57)
[2019-03-10] MEDS ORDERED: METHADONE HCL 5 MG TABLET ONE (05:45)
[2019-03-10] MEDS ORDERED: METHADONE HCL 10 MG TABLET ONE (05:45)
[2019-03-10] MEDS ORDERED: METHADONE HCL 40 MG DISPERSABLE TABLET ONE (05:46)
[2019-03-10] MEDS: GABAPENTIN 300 MG CAPSULE (FP) PO SCH ×3 (06:25→21:38)
[2019-03-10] MEDS: METHADONE 40 MG, METHADONE 10 MG, METHADONE 5 MG PO SCH (06:25)
[2019-03-10] MEDS: metFORMIN HCL 500 MG TABLET (FP) PO SCH ×2 (06:25→16:48)
[2019-03-10] MEDS: INSULIN SLIDING SCALE (NOVOLOG) 1 VIAL SQ SCH ×4 (07:34→21:39)
[2019-03-10] MEDS: MONTELUKAST NA 10 MG TABLET PO SCH (10:49)
[2019-03-10] MEDS: levETIRAcetam 250 MG TABLET (FP) PO SCH ×2 (10:49→21:37)
[2019-03-10] MEDS: clonazePAM 0.5 MG TABLET PO PRN (10:49)
[2019-03-10] MEDS: ESCITALOPRAM OXALATE 10 MG TABLET (FP) PO SCH (10:50)
[2019-03-10] MEDS: PANTOPRAZOLE 40 MG TABLET (FP) PO SCH (10:50)
[2019-03-10] MEDS: ASPIRIN 81 MG CHEWABLE TABLETS PO SCH (10:50)
[2019-03-10] MEDS: QUEtiapine FUMARATE 25 MG TABLET (FP) PO SCH ×2 (10:50→21:38)
[2019-03-10] MEDS: PRENATAL VITAMINS W/ FOLIC ACID TABLET (FP) PO SCH (10:50)
[2019-03-10] MEDS: LIDOCAINE 5% TOPICAL PATCH TP SCH (10:51)
[2019-03-10] MEDS ORDERED: INSULIN (NOVOLOG) ASPART 100 UNITS/ML 10ML VIAL ONE (17:26)
[2019-03-10] MEDS: INSULIN (LEVEMIR) 100 UNITS/ML UNITS SQ SCH (21:37)
[2019-03-10] MEDS: THIAMINE HCL 100 MG TABLET (FP) PO SCH (21:38)
[2019-03-10] MEDS: LIDOCAINE PATCH REMOVAL MC SCH (21:39)
[2019-03-11] MEDS ORDERED: METHADONE HCL 5 MG TABLET ONE (05:07)
[2019-03-11] MEDS ORDERED: METHADONE HCL 10 MG TABLET ONE (05:08)
[2019-03-11] MEDS ORDERED: METHADONE HCL 40 MG DISPERSABLE TABLET ONE (05:08)
[2019-03-11] MEDS: GABAPENTIN 300 MG CAPSULE (FP) PO SCH ×3 (06:15→21:47)
[2019-03-11] MEDS: metFORMIN HCL 500 MG TABLET (FP) PO SCH ×2 (06:15→16:59)
[2019-03-11] MEDS: METHADONE 40 MG, METHADONE 10 MG, METHADONE 5 MG PO SCH (06:15)
[2019-03-11] MEDS: INSULIN SLIDING SCALE (NOVOLOG) 1 VIAL SQ SCH ×4 (07:42→21:46)
[2019-03-11] MEDS: clonazePAM 0.5 MG TABLET PO PRN ×2 (11:08→21:47)
[2019-03-11] MEDS: PANTOPRAZOLE 40 MG TABLET (FP) PO SCH (11:08)
[2019-03-11] MEDS: CYCLOBENZAPRINE HCL 10 MG TABLET (FP) PO PRN ×2 (11:08→21:48)
[2019-03-11] MEDS: PRENATAL VITAMINS W/ FOLIC ACID TABLET (FP) PO SCH (11:08)
[2019-03-11] MEDS: QUEtiapine FUMARATE 25 MG TABLET (FP) PO SCH ×2 (11:09→21:48)
[2019-03-11] MEDS: ASPIRIN 81 MG CHEWABLE TABLETS PO SCH (11:09)
[2019-03-11] MEDS: ESCITALOPRAM OXALATE 10 MG TABLET (FP) PO SCH (11:10)
[2019-03-11] MEDS: LIDOCAINE 5% TOPICAL PATCH TP SCH (11:11)
[2019-03-11] MEDS: levETIRAcetam 250 MG TABLET (FP) PO SCH ×2 (11:11→21:47)
[2019-03-11] MEDS: MONTELUKAST NA 10 MG TABLET PO SCH (11:27)
[2019-03-11] MEDS ORDERED: INSULIN (NOVOLOG) ASPART 100 UNITS/ML 10ML VIAL ONE (16:27)
[2019-03-11] MEDS: INSULIN (LEVEMIR) 100 UNITS/ML UNITS SQ SCH (21:46)
[2019-03-11] MEDS: LIDOCAINE PATCH REMOVAL MC SCH (21:47)
[2019-03-11] MEDS: THIAMINE HCL 100 MG TABLET (FP) PO SCH (21:48)
[2019-03-11] MEDS: MELATONIN 5 MG TABLETS PO PRN (21:48)
[2019-03-12] MEDS ORDERED: METHADONE HCL 5 MG TABLET ONE (05:48)
[2019-03-12] MEDS ORDERED: METHADONE HCL 10 MG TABLET ONE (05:48)
[2019-03-12] MEDS ORDERED: METHADONE HCL 40 MG DISPERSABLE TABLET ONE (05:48)
[2019-03-12] MEDS: METHADONE 40 MG, METHADONE 10 MG, METHADONE 5 MG PO SCH (05:53)
[2019-03-12] MEDS: GABAPENTIN 300 MG CAPSULE (FP) PO SCH ×3 (05:53→22:02)
[2019-03-12] MEDS: metFORMIN HCL 500 MG TABLET (FP) PO SCH ×2 (06:09→16:48)
[2019-03-12] MEDS: INSULIN SLIDING SCALE (NOVOLOG) 1 VIAL SQ SCH ×4 (06:09→22:04)
[2019-03-12] MEDS: PRENATAL VITAMINS W/ FOLIC ACID TABLET (FP) PO SCH (11:12)
[2019-03-12] MEDS: levETIRAcetam 250 MG TABLET (FP) PO SCH ×2 (11:12→22:02)
[2019-03-12] MEDS: QUEtiapine FUMARATE 25 MG TABLET (FP) PO SCH ×2 (11:12→22:02)
[2019-03-12] MEDS: ASPIRIN 81 MG CHEWABLE TABLETS PO SCH (11:12)
[2019-03-12] MEDS: PANTOPRAZOLE 40 MG TABLET (FP) PO SCH (11:12)
[2019-03-12] MEDS: MONTELUKAST NA 10 MG TABLET PO SCH (11:12)
[2019-03-12] MEDS: ESCITALOPRAM OXALATE 10 MG TABLET (FP) PO SCH (11:12)
[2019-03-12] MEDS: LIDOCAINE 5% TOPICAL PATCH TP SCH (11:13)
[2019-03-12] MEDS: KETOROLAC TROMETHAMINE 10 MG TABLET PO PRN (11:24)
[2019-03-12] MEDS: clonazePAM 0.5 MG TABLET PO SCH ×2 (12:27→22:02)
[2019-03-12] MEDS: INSULIN (LEVEMIR) 100 UNITS/ML UNITS SQ SCH (22:01)
[2019-03-12] MEDS: THIAMINE HCL 100 MG TABLET (FP) PO SCH (22:03)
[2019-03-12] MEDS: LIDOCAINE PATCH REMOVAL MC SCH (22:04)
[2019-03-13] MEDS ORDERED: METHADONE HCL 5 MG TABLET ONE (05:50)
[2019-03-13] MEDS ORDERED: METHADONE HCL 10 MG TABLET ONE (05:50)
[2019-03-13] MEDS ORDERED: METHADONE HCL 40 MG DISPERSABLE TABLET ONE (05:50)
[2019-03-13] MEDS: GABAPENTIN 300 MG CAPSULE (FP) PO SCH ×3 (05:53→21:36)
[2019-03-13] MEDS: METHADONE 40 MG, METHADONE 10 MG, METHADONE 5 MG PO SCH (05:58)
[2019-03-13] MEDS: metFORMIN HCL 500 MG TABLET (FP) PO SCH ×2 (07:26→16:51)
[2019-03-13] MEDS: INSULIN SLIDING SCALE (NOVOLOG) 1 VIAL SQ SCH ×4 (07:50→21:39)
[2019-03-13] MEDS: QUEtiapine FUMARATE 25 MG TABLET (FP) PO SCH ×2 (10:41→21:36)
[2019-03-13] MEDS: ESCITALOPRAM OXALATE 10 MG TABLET (FP) PO SCH (10:41)
[2019-03-13] MEDS: PANTOPRAZOLE 40 MG TABLET (FP) PO SCH (10:41)
[2019-03-13] MEDS: ASPIRIN 81 MG CHEWABLE TABLETS PO SCH (10:41)
[2019-03-13] MEDS: PRENATAL VITAMINS W/ FOLIC ACID TABLET (FP) PO SCH (10:41)
[2019-03-13] MEDS: MONTELUKAST NA 10 MG TABLET PO SCH (10:41)
[2019-03-13] MEDS: clonazePAM 0.5 MG TABLET PO SCH ×2 (10:43→21:38)
[2019-03-13] MEDS: KETOROLAC TROMETHAMINE 10 MG TABLET PO PRN (10:43)
[2019-03-13] MEDS: LIDOCAINE 5% TOPICAL PATCH TP SCH (10:44)
[2019-03-13] MEDS: levETIRAcetam 250 MG TABLET (FP) PO SCH (11:00)
[2019-03-13] MEDS ORDERED: INSULIN (NOVOLOG) ASPART 100 UNITS/ML 10ML VIAL ONE (11:57)
[2019-03-13] MEDS: INSULIN (LEVEMIR) 100 UNITS/ML UNITS SQ SCH (21:36)
[2019-03-13] MEDS ORDERED: levETIRAcetam 250 MG TABLET (FP) PO ONE (21:37)
[2019-03-13] MEDS ORDERED: levETIRAcetam 500 MG TABLET (FP) PO ONE (21:37)
[2019-03-13] MEDS: CYCLOBENZAPRINE HCL 10 MG TABLET (FP) PO PRN (21:38)
[2019-03-13] MEDS: LIDOCAINE PATCH REMOVAL MC SCH (21:38)
[2019-03-13] MEDS: THIAMINE HCL 100 MG TABLET (FP) PO SCH (21:39)
[2019-03-14] MEDS ORDERED: METHADONE HCL 5 MG TABLET ONE (05:26)
[2019-03-14] MEDS ORDERED: METHADONE HCL 10 MG TABLET ONE (05:26)
[2019-03-14] MEDS ORDERED: METHADONE HCL 40 MG DISPERSABLE TABLET ONE (05:27)
[2019-03-14] MEDS: METHADONE 40 MG, METHADONE 10 MG, METHADONE 5 MG PO SCH (06:14)
[2019-03-14] MEDS: GABAPENTIN 300 MG CAPSULE (FP) PO SCH ×3 (06:14→21:40)
[2019-03-14] MEDS: metFORMIN HCL 500 MG TABLET (FP) PO SCH ×2 (06:14→16:39)
[2019-03-14] MEDS: INSULIN SLIDING SCALE (NOVOLOG) 1 VIAL SQ SCH ×4 (08:06→21:44)
[2019-03-14] MEDS ORDERED: levETIRAcetam 500 MG TABLET (FP) PO ONE ×2 (08:39→20:44)
[2019-03-14] MEDS ORDERED: levETIRAcetam 250 MG TABLET (FP) PO ONE ×2 (08:39→20:45)
[2019-03-14] MEDS: PRENATAL VITAMINS W/ FOLIC ACID TABLET (FP) PO SCH (10:11)
[2019-03-14] MEDS: clonazePAM 0.5 MG TABLET PO SCH ×2 (10:12→21:41)
[2019-03-14] MEDS: ASPIRIN 81 MG CHEWABLE TABLETS PO SCH (10:12)
[2019-03-14] MEDS: ESCITALOPRAM OXALATE 10 MG TABLET (FP) PO SCH (10:12)
[2019-03-14] MEDS: LIDOCAINE 5% TOPICAL PATCH TP SCH (10:12)
[2019-03-14] MEDS: QUEtiapine FUMARATE 25 MG TABLET (FP) PO SCH ×2 (10:12→21:40)
[2019-03-14] MEDS: PANTOPRAZOLE 40 MG TABLET (FP) PO SCH (10:12)
[2019-03-14] MEDS: MONTELUKAST NA 10 MG TABLET PO SCH (10:12)
[2019-03-14] MEDS: KETOROLAC TROMETHAMINE 10 MG TABLET PO PRN (10:13)
[2019-03-14] MEDS ORDERED: INSULIN (NOVOLOG) ASPART 100 UNITS/ML 10ML VIAL ONE ×2 (11:48→16:41)
[2019-03-14] MEDS: THIAMINE HCL 100 MG TABLET (FP) PO SCH (21:41)
[2019-03-14] MEDS: INSULIN (LEVEMIR) 100 UNITS/ML UNITS SQ SCH (21:43)
[2019-03-14] MEDS: LIDOCAINE PATCH REMOVAL MC SCH (21:43)
[2019-03-15] MEDS ORDERED: METHADONE HCL 5 MG TABLET ONE (05:48)
[2019-03-15] MEDS ORDERED: METHADONE HCL 10 MG TABLET ONE (05:48)
[2019-03-15] MEDS ORDERED: METHADONE HCL 40 MG DISPERSABLE TABLET ONE (05:49)
[2019-03-15] MEDS: METHADONE 40 MG, METHADONE 10 MG, METHADONE 5 MG PO SCH (05:49)
[2019-03-15] MEDS: GABAPENTIN 300 MG CAPSULE (FP) PO SCH ×3 (05:50→21:42)
[2019-03-15] MEDS: metFORMIN HCL 500 MG TABLET (FP) PO SCH ×2 (06:56→16:40)
[2019-03-15] MEDS: INSULIN SLIDING SCALE (NOVOLOG) 1 VIAL SQ SCH ×4 (07:01→21:45)
[2019-03-15] MEDS ORDERED: levETIRAcetam 250 MG TABLET (FP) PO ONE ×2 (08:40→20:39)
[2019-03-15] MEDS ORDERED: levETIRAcetam 500 MG TABLET (FP) PO ONE ×2 (08:40→20:39)
[2019-03-15] MEDS: clonazePAM 0.5 MG TABLET PO SCH ×2 (09:42→21:42)
[2019-03-15] MEDS: QUEtiapine FUMARATE 25 MG TABLET (FP) PO SCH ×2 (09:42→21:42)
[2019-03-15] MEDS: MONTELUKAST NA 10 MG TABLET PO SCH (09:42)
[2019-03-15] MEDS: PRENATAL VITAMINS W/ FOLIC ACID TABLET (FP) PO SCH (09:42)
[2019-03-15] MEDS: PANTOPRAZOLE 40 MG TABLET (FP) PO SCH (09:42)
[2019-03-15] MEDS: LIDOCAINE 5% TOPICAL PATCH TP SCH (09:43)
[2019-03-15] MEDS: KETOROLAC TROMETHAMINE 10 MG TABLET PO PRN (09:43)
[2019-03-15] MEDS: ASPIRIN 81 MG CHEWABLE TABLETS PO SCH (09:43)
[2019-03-15] MEDS: ESCITALOPRAM OXALATE 10 MG TABLET (FP) PO SCH (09:43)
[2019-03-15] MEDS ORDERED: INSULIN (NOVOLOG) ASPART 100 UNITS/ML 10ML VIAL ONE ×2 (11:45→16:30)
[2019-03-15] MEDS: THIAMINE HCL 100 MG TABLET (FP) PO SCH (21:42)
[2019-03-15] MEDS: LIDOCAINE PATCH REMOVAL MC SCH (21:44)
[2019-03-15] MEDS: INSULIN (LEVEMIR) 100 UNITS/ML UNITS SQ SCH (21:44)
[2019-03-16] MEDS ORDERED: METHADONE HCL 5 MG TABLET ONE (04:36)
[2019-03-16] MEDS ORDERED: METHADONE HCL 10 MG TABLET ONE (04:36)
[2019-03-16] MEDS ORDERED: METHADONE HCL 40 MG DISPERSABLE TABLET ONE (04:37)
[2019-03-16] MEDS: METHADONE 40 MG, METHADONE 10 MG, METHADONE 5 MG PO SCH (05:24)
[2019-03-16] MEDS: GABAPENTIN 300 MG CAPSULE (FP) PO SCH ×3 (05:24→21:33)
[2019-03-16] MEDS ORDERED: INSULIN (NOVOLOG) ASPART 100 UNITS/ML 10ML VIAL ONE ×3 (06:03→16:19)
[2019-03-16] MEDS: INSULIN SLIDING SCALE (NOVOLOG) 1 VIAL SQ SCH ×5 (07:06→21:35)
[2019-03-16] MEDS: metFORMIN HCL 500 MG TABLET (FP) PO SCH ×2 (07:06→16:42)
[2019-03-16] MEDS: LIDOCAINE 5% TOPICAL PATCH TP SCH (10:29)
[2019-03-16] MEDS: KETOROLAC TROMETHAMINE 10 MG TABLET PO PRN (10:30)
[2019-03-16] MEDS: PRENATAL VITAMINS W/ FOLIC ACID TABLET (FP) PO SCH (10:31)
[2019-03-16] MEDS: MONTELUKAST NA 10 MG TABLET PO SCH (10:31)
[2019-03-16] MEDS: ESCITALOPRAM OXALATE 10 MG TABLET (FP) PO SCH (10:31)
[2019-03-16] MEDS: CYCLOBENZAPRINE HCL 10 MG TABLET (FP) PO PRN (10:31)
[2019-03-16] MEDS: ASPIRIN 81 MG CHEWABLE TABLETS PO SCH (10:31)
[2019-03-16] MEDS: PANTOPRAZOLE 40 MG TABLET (FP) PO SCH (10:31)
[2019-03-16] MEDS: clonazePAM 0.5 MG TABLET PO SCH ×2 (10:32→21:33)
[2019-03-16] MEDS: QUEtiapine FUMARATE 25 MG TABLET (FP) PO SCH ×2 (10:32→21:33)
[2019-03-16] MEDS ORDERED: levETIRAcetam 500 MG TABLET (FP) PO ONE (20:48)
[2019-03-16] MEDS ORDERED: levETIRAcetam 250 MG TABLET (FP) PO ONE (20:48)
[2019-03-16] MEDS: THIAMINE HCL 100 MG TABLET (FP) PO SCH (21:33)
[2019-03-16] MEDS: INSULIN (LEVEMIR) 100 UNITS/ML UNITS SQ SCH (21:34)
[2019-03-16] MEDS: LIDOCAINE PATCH REMOVAL MC SCH (21:35)
[2019-03-17] MEDS ORDERED: METHADONE HCL 5 MG TABLET ONE (06:01)
[2019-03-17] MEDS ORDERED: METHADONE HCL 40 MG DISPERSABLE TABLET ONE (06:02)
[2019-03-17] MEDS ORDERED: METHADONE HCL 10 MG TABLET ONE (06:02)
[2019-03-17] MEDS: metFORMIN HCL 500 MG TABLET (FP) PO SCH ×2 (06:16→16:46)
[2019-03-17] MEDS: GABAPENTIN 300 MG CAPSULE (FP) PO SCH ×3 (06:16→21:42)
[2019-03-17] MEDS: METHADONE 40 MG, METHADONE 10 MG, METHADONE 5 MG PO SCH (06:16)
[2019-03-17] MEDS: INSULIN SLIDING SCALE (NOVOLOG) 1 VIAL SQ SCH ×4 (08:00→21:42)
[2019-03-17] MEDS ORDERED: levETIRAcetam 250 MG TABLET (FP) PO ONE ×2 (09:33→20:20)
[2019-03-17] MEDS ORDERED: levETIRAcetam 500 MG TABLET (FP) PO ONE ×2 (09:33→20:20)
[2019-03-17] MEDS: clonazePAM 0.5 MG TABLET PO SCH ×2 (10:52→21:41)
[2019-03-17] MEDS: QUEtiapine FUMARATE 25 MG TABLET (FP) PO SCH ×2 (10:53→21:42)
[2019-03-17] MEDS: PANTOPRAZOLE 40 MG TABLET (FP) PO SCH (10:53)
[2019-03-17] MEDS: MONTELUKAST NA 10 MG TABLET PO SCH (10:53)
[2019-03-17] MEDS: ASPIRIN 81 MG CHEWABLE TABLETS PO SCH (10:53)
[2019-03-17] MEDS: PRENATAL VITAMINS W/ FOLIC ACID TABLET (FP) PO SCH (10:53)
[2019-03-17] MEDS: ESCITALOPRAM OXALATE 10 MG TABLET (FP) PO SCH (10:53)
[2019-03-17] MEDS: LIDOCAINE 5% TOPICAL PATCH TP SCH (11:00)
[2019-03-17] MEDS ORDERED: INSULIN (NOVOLOG) ASPART 100 UNITS/ML 10ML VIAL ONE (11:50)
[2019-03-17] MEDS: KETOROLAC TROMETHAMINE 10 MG TABLET PO PRN (13:05)
[2019-03-17] MEDS: INSULIN (LEVEMIR) 100 UNITS/ML UNITS SQ SCH (21:41)
[2019-03-17] MEDS: CYCLOBENZAPRINE HCL 10 MG TABLET (FP) PO PRN (21:42)
[2019-03-17] MEDS: MELATONIN 5 MG TABLETS PO PRN (21:42)
[2019-03-17] MEDS: LIDOCAINE PATCH REMOVAL MC SCH (21:42)
[2019-03-17] MEDS: THIAMINE HCL 100 MG TABLET (FP) PO SCH (21:42)
[2019-03-18] MEDS ORDERED: METHADONE HCL 40 MG DISPERSABLE TABLET ONE (03:53)
[2019-03-18] MEDS ORDERED: METHADONE HCL 10 MG TABLET ONE (03:53)
[2019-03-18] MEDS ORDERED: METHADONE HCL 5 MG TABLET ONE (03:53)
[2019-03-18] MEDS: METHADONE 40 MG, METHADONE 10 MG, METHADONE 5 MG PO SCH (06:08)
[2019-03-18] MEDS: metFORMIN HCL 500 MG TABLET (FP) PO SCH ×2 (06:08→16:42)
[2019-03-18] MEDS: GABAPENTIN 300 MG CAPSULE (FP) PO SCH ×3 (06:08→21:48)
[2019-03-18] MEDS: INSULIN SLIDING SCALE (NOVOLOG) 1 VIAL SQ SCH ×4 (08:00→21:56)
[2019-03-18] MEDS ORDERED: levETIRAcetam 500 MG TABLET (FP) PO ONE ×2 (09:23→20:51)
[2019-03-18] MEDS ORDERED: levETIRAcetam 250 MG TABLET (FP) PO ONE ×2 (09:23→20:52)
[2019-03-18] MEDS: ASPIRIN 81 MG CHEWABLE TABLETS PO SCH (10:44)
[2019-03-18] MEDS: ESCITALOPRAM OXALATE 10 MG TABLET (FP) PO SCH (10:44)
[2019-03-18] MEDS: PRENATAL VITAMINS W/ FOLIC ACID TABLET (FP) PO SCH (10:44)
[2019-03-18] MEDS: clonazePAM 0.5 MG TABLET PO SCH ×2 (10:44→21:48)
[2019-03-18] MEDS: QUEtiapine FUMARATE 25 MG TABLET (FP) PO SCH ×2 (10:44→21:48)
[2019-03-18] MEDS: PANTOPRAZOLE 40 MG TABLET (FP) PO SCH (10:44)
[2019-03-18] MEDS: MONTELUKAST NA 10 MG TABLET PO SCH (10:44)
[2019-03-18] MEDS: LIDOCAINE 5% TOPICAL PATCH TP SCH (10:44)
[2019-03-18] MEDS: KETOROLAC TROMETHAMINE 10 MG TABLET PO PRN (10:45)
[2019-03-18] MEDS ORDERED: INSULIN (NOVOLOG) ASPART 100 UNITS/ML 10ML VIAL ONE (12:08)
[2019-03-18] MEDS: THIAMINE HCL 100 MG TABLET (FP) PO SCH (21:48)
[2019-03-18] MEDS: INSULIN (LEVEMIR) 100 UNITS/ML UNITS SQ SCH (21:49)
[2019-03-18] MEDS: LIDOCAINE PATCH REMOVAL MC SCH (21:50)
[2019-03-19] MEDS ORDERED: METHADONE HCL 10 MG TABLET ONE (05:45)
[2019-03-19] MEDS ORDERED: METHADONE HCL 5 MG TABLET ONE (05:45)
[2019-03-19] MEDS ORDERED: METHADONE HCL 40 MG DISPERSABLE TABLET ONE (05:46)
[2019-03-19] MEDS: METHADONE 40 MG, METHADONE 10 MG, METHADONE 5 MG PO SCH (05:47)
[2019-03-19] MEDS: GABAPENTIN 300 MG CAPSULE (FP) PO SCH ×3 (05:47→21:45)
[2019-03-19] MEDS: metFORMIN HCL 500 MG TABLET (FP) PO SCH ×2 (07:26→16:55)
[2019-03-19] MEDS: INSULIN SLIDING SCALE (NOVOLOG) 1 VIAL SQ SCH ×4 (07:27→21:47)
[2019-03-19] MEDS ORDERED: levETIRAcetam 250 MG TABLET (FP) PO ONE ×2 (09:14→20:54)
[2019-03-19] MEDS ORDERED: levETIRAcetam 500 MG TABLET (FP) PO ONE ×2 (09:14→20:54)
[2019-03-19] MEDS: ESCITALOPRAM OXALATE 10 MG TABLET (FP) PO SCH (10:40)
[2019-03-19] MEDS: QUEtiapine FUMARATE 25 MG TABLET (FP) PO SCH ×2 (10:40→21:46)
[2019-03-19] MEDS: ASPIRIN 81 MG CHEWABLE TABLETS PO SCH (10:40)
[2019-03-19] MEDS: PANTOPRAZOLE 40 MG TABLET (FP) PO SCH (10:40)
[2019-03-19] MEDS: MONTELUKAST NA 10 MG TABLET PO SCH (10:40)
[2019-03-19] MEDS: LIDOCAINE 5% TOPICAL PATCH TP SCH (10:40)
[2019-03-19] MEDS: PRENATAL VITAMINS W/ FOLIC ACID TABLET (FP) PO SCH (10:40)
[2019-03-19] MEDS: clonazePAM 0.5 MG TABLET PO SCH ×2 (10:40→21:46)
[2019-03-19] MEDS: KETOROLAC TROMETHAMINE 10 MG TABLET PO PRN (10:41)
[2019-03-19] MEDS ORDERED: INSULIN (NOVOLOG) ASPART 100 UNITS/ML 10ML VIAL ONE (11:49)
[2019-03-19] MEDS: THIAMINE HCL 100 MG TABLET (FP) PO SCH (21:46)
[2019-03-19] MEDS: LIDOCAINE PATCH REMOVAL MC SCH (21:47)
[2019-03-19] MEDS: INSULIN (LEVEMIR) 100 UNITS/ML UNITS SQ SCH (21:47)
[2019-03-20] MEDS ORDERED: METHADONE HCL 5 MG TABLET ONE (05:56)
[2019-03-20] MEDS ORDERED: METHADONE HCL 10 MG TABLET ONE (05:57)
[2019-03-20] MEDS ORDERED: METHADONE HCL 40 MG DISPERSABLE TABLET ONE (05:57)
[2019-03-20] MEDS: metFORMIN HCL 500 MG TABLET (FP) PO SCH ×2 (05:59→16:49)
[2019-03-20] MEDS: METHADONE 40 MG, METHADONE 10 MG, METHADONE 5 MG PO SCH (06:00)
[2019-03-20] MEDS: GABAPENTIN 300 MG CAPSULE (FP) PO SCH ×3 (06:00→21:52)
[2019-03-20] MEDS: INSULIN SLIDING SCALE (NOVOLOG) 1 VIAL SQ SCH ×4 (07:25→21:53)
[2019-03-20] MEDS ORDERED: INSULIN (NOVOLOG) ASPART 100 UNITS/ML 10ML VIAL ONE ×4 (07:42→22:17)
[2019-03-20] MEDS ORDERED: levETIRAcetam 250 MG TABLET (FP) PO ONE ×2 (09:34→20:28)
[2019-03-20] MEDS ORDERED: levETIRAcetam 500 MG TABLET (FP) PO ONE ×2 (09:34→20:28)
[2019-03-20] MEDS: LIDOCAINE 5% TOPICAL PATCH TP SCH (11:00)
[2019-03-20] MEDS: ASPIRIN 81 MG CHEWABLE TABLETS PO SCH (11:01)
[2019-03-20] MEDS: clonazePAM 0.5 MG TABLET PO SCH ×2 (11:01→21:52)
[2019-03-20] MEDS: KETOROLAC TROMETHAMINE 10 MG TABLET PO PRN (11:02)
[2019-03-20] MEDS: ESCITALOPRAM OXALATE 10 MG TABLET (FP) PO SCH (11:02)
[2019-03-20] MEDS: PANTOPRAZOLE 40 MG TABLET (FP) PO SCH (11:02)
[2019-03-20] MEDS: PRENATAL VITAMINS W/ FOLIC ACID TABLET (FP) PO SCH (11:02)
[2019-03-20] MEDS: MONTELUKAST NA 10 MG TABLET PO SCH (11:02)
[2019-03-20] MEDS: QUEtiapine FUMARATE 25 MG TABLET (FP) PO SCH ×2 (11:02→21:52)
[2019-03-20] MEDS: THIAMINE HCL 100 MG TABLET (FP) PO SCH (21:52)
[2019-03-20] MEDS: LIDOCAINE PATCH REMOVAL MC SCH (21:53)
[2019-03-20] MEDS: INSULIN (LEVEMIR) 100 UNITS/ML UNITS SQ SCH (21:54)
[2019-03-21] MEDS ORDERED: METHADONE HCL 10 MG TABLET ONE (03:56)
[2019-03-21] MEDS ORDERED: METHADONE HCL 5 MG TABLET ONE (03:56)
[2019-03-21] MEDS ORDERED: METHADONE HCL 40 MG DISPERSABLE TABLET ONE (03:56)
[2019-03-21] MEDS: GABAPENTIN 300 MG CAPSULE (FP) PO SCH ×3 (06:09→21:53)
[2019-03-21] MEDS: metFORMIN HCL 500 MG TABLET (FP) PO SCH ×2 (06:09→17:32)
[2019-03-21] MEDS: METHADONE 40 MG, METHADONE 10 MG, METHADONE 5 MG PO SCH (06:09)
[2019-03-21] MEDS ORDERED: INSULIN (NOVOLOG) ASPART 100 UNITS/ML 10ML VIAL ONE ×2 (08:03→12:18)
[2019-03-21] MEDS: INSULIN SLIDING SCALE (NOVOLOG) 1 VIAL SQ SCH ×4 (08:05→21:54)
[2019-03-21] MEDS ORDERED: levETIRAcetam 500 MG TABLET (FP) PO ONE ×2 (09:25→20:45)
[2019-03-21] MEDS ORDERED: levETIRAcetam 250 MG TABLET (FP) PO ONE ×2 (09:25→20:46)
[2019-03-21] MEDS: ESCITALOPRAM OXALATE 10 MG TABLET (FP) PO SCH (10:44)
[2019-03-21] MEDS: LIDOCAINE 5% TOPICAL PATCH TP SCH (10:44)
[2019-03-21] MEDS: ASPIRIN 81 MG CHEWABLE TABLETS PO SCH (10:44)
[2019-03-21] MEDS: MONTELUKAST NA 10 MG TABLET PO SCH (10:45)
[2019-03-21] MEDS: QUEtiapine FUMARATE 25 MG TABLET (FP) PO SCH ×2 (10:45→21:53)
[2019-03-21] MEDS: PANTOPRAZOLE 40 MG TABLET (FP) PO SCH (10:45)
[2019-03-21] MEDS: PRENATAL VITAMINS W/ FOLIC ACID TABLET (FP) PO SCH (10:45)
[2019-03-21] MEDS: clonazePAM 0.5 MG TABLET PO SCH ×2 (10:45→21:53)
[2019-03-21] MEDS: KETOROLAC TROMETHAMINE 10 MG TABLET PO PRN (10:47)
[2019-03-21] MEDS: CYCLOBENZAPRINE HCL 10 MG TABLET (FP) PO PRN (14:20)
[2019-03-21] MEDS: THIAMINE HCL 100 MG TABLET (FP) PO SCH (21:53)
[2019-03-21] MEDS: INSULIN (LEVEMIR) 100 UNITS/ML UNITS SQ SCH (21:54)
[2019-03-21] MEDS: LIDOCAINE PATCH REMOVAL MC SCH (21:54)
[2019-03-22] MEDS ORDERED: METHADONE HCL 10 MG TABLET ONE (05:08)
[2019-03-22] MEDS ORDERED: METHADONE HCL 5 MG TABLET ONE (05:08)
[2019-03-22] MEDS ORDERED: METHADONE HCL 40 MG DISPERSABLE TABLET ONE (05:09)
[2019-03-22] MEDS: METHADONE 40 MG, METHADONE 10 MG, METHADONE 5 MG PO SCH (06:05)
[2019-03-22] MEDS: metFORMIN HCL 500 MG TABLET (FP) PO SCH ×2 (06:05→17:16)
[2019-03-22] MEDS: GABAPENTIN 300 MG CAPSULE (FP) PO SCH ×3 (06:05→21:20)
[2019-03-22] MEDS: INSULIN SLIDING SCALE (NOVOLOG) 1 VIAL SQ SCH ×4 (07:53→21:23)
[2019-03-22] MEDS ORDERED: levETIRAcetam 500 MG TABLET (FP) PO ONE (09:23)
[2019-03-22] MEDS ORDERED: levETIRAcetam 250 MG TABLET (FP) PO ONE (09:23)
[2019-03-22] MEDS: clonazePAM 0.5 MG TABLET PO SCH ×2 (10:44→21:21)
[2019-03-22] MEDS: MONTELUKAST NA 10 MG TABLET PO SCH (10:45)
[2019-03-22] MEDS: ESCITALOPRAM OXALATE 10 MG TABLET (FP) PO SCH (10:45)
[2019-03-22] MEDS: CYCLOBENZAPRINE HCL 10 MG TABLET (FP) PO PRN (10:45)
[2019-03-22] MEDS: PRENATAL VITAMINS W/ FOLIC ACID TABLET (FP) PO SCH (10:46)
[2019-03-22] MEDS: QUEtiapine FUMARATE 25 MG TABLET (FP) PO SCH ×2 (10:46→21:19)
[2019-03-22] MEDS: PANTOPRAZOLE 40 MG TABLET (FP) PO SCH (10:46)
[2019-03-22] MEDS: ASPIRIN 81 MG CHEWABLE TABLETS PO SCH (10:46)
[2019-03-22] MEDS: LIDOCAINE 5% TOPICAL PATCH TP SCH (10:47)
--- NOTE | 2019-03-22 17:53 | PN ---
S Progress Note Note: Psychiatric nurse practitioner note: Patient scheduled for discharge tomorrow. A 30 day prescription of Lexapro 10mg daily + Seroquel 50mg BID was electronically sent to [facility], [address] [place] [address].
[2019-03-22] MEDS: LIDOCAINE PATCH REMOVAL MC SCH (21:19)
[2019-03-22] MEDS: THIAMINE HCL 100 MG TABLET (FP) PO SCH (21:20)
[2019-03-22] MEDS: INSULIN (LEVEMIR) 100 UNITS/ML UNITS SQ SCH (21:23)
[2019-03-23] MEDS ORDERED: METHADONE HCL 5 MG TABLET ONE (06:02)
[2019-03-23] MEDS ORDERED: METHADONE HCL 40 MG DISPERSABLE TABLET ONE (06:03)
[2019-03-23] MEDS: METHADONE 40 MG, METHADONE 10 MG, METHADONE 5 MG PO SCH (06:03)
[2019-03-23] MEDS ORDERED: METHADONE HCL 10 MG TABLET ONE (06:03)
[2019-03-23] MEDS: GABAPENTIN 300 MG CAPSULE (FP) PO SCH (06:05)
[2019-03-23 07:24] VITALS: BP 115/78; PULSE 111; TEMP 97.3
[2019-03-23] MEDS: metFORMIN HCL 500 MG TABLET (FP) PO SCH (07:36)
[2019-03-23] MEDS ORDERED: INSULIN (NOVOLOG) ASPART 100 UNITS/ML 10ML VIAL ONE (07:39)
[2019-03-23] MEDS: INSULIN SLIDING SCALE (NOVOLOG) 1 VIAL SQ SCH (07:39)
--- NOTE | 2019-03-23 08:41 | DS ---
[facility] Rehab Discharge Summary - [facility] Re[facility] Discharge Summary Admission Date: 02/23/19 Discharge Date: 03/23/19 - History Present History: Alcohol dependence, MMTP Additional Comments: Pt is a 48 y/o male admitted to rehab for CATINA and discharged today after completion of treatment. Pt reports he is going home to follow up with aftercare treatment. Pt has been referred to [facility] after[facility] and will follow up with his MMTP at [facility] after discharge. Pt has primary care with and Mental health care with Massiel Chung, psychiatric tech for management. Pertinent Past History: Type 2 DM Hep C Seizure disorder HLD I.V.Drug use Bipolar disorder - Discharge Physical Exam Vital Signs: Vital Signs Temperature 97.3 F L 03/23/19 07:23 Pulse Rate 111 H 03/23/19 07:23 Respiratory Rate 18 03/23/19 07:23 Blood Pressure 115/78 03/23/19 07:23 O2 Sat by Pulse Oximetry (%) Alert o x 3, nad oob ambulating with steady gait cardiac:s1 s2, tachycardia lungs:cta,bindu. abdomen:soft,+bs,nt,nd extremities/skin:no edema.full ROM,skin intact. Pertinent Admission Physical Exam Findings: Laboratory Tests 02/23/19 02/23/19 02/24/19 16:58 20:52 06:38 WBC RBC Hgb Hct MCV MCH MCHC RDW Plt Count MPV Absolute Neuts (auto) Neutrophils % Lymphocytes % Monocytes % Eosinophils % Basophils % Nucleated RBC % POC Glucometer 241 255 159 Levetiracetam HIV 1&2 Antibody Screen HIV P24 Antigen 02/24/19 02/24/19 02/24/19 08:35 08:35 12:00 WBC 12.9 H RBC 3.98 L Hgb 12.6 Hct 36.2 MCV 90.9 MCH 31.6 MCHC 34.8 RDW 12.7 Plt Count 206 MPV 8.4 Absolute Neuts (auto) 9.5 H Neutrophils % 73.5 Lymphocytes % 12.4 D Monocytes % 8.1 Eosinophils % 5.5 H Basophils % 0.5 Nucleated RBC % 0 POC Glucometer 343 Levetiracetam HIV 1&2 Antibody Screen Negative HIV P24 Antigen Negative 02/24/19 02/24/19 02/24/19 13:55 16:52 21:11 WBC RBC Hgb Hct MCV MCH MCHC RDW Plt Count MPV Absolute Neuts (auto) Neutrophils % Lymphocytes % Monocytes % Eosinophils % Basophils % Nucleated RBC % POC Glucometer 237 233 Levetiracetam 18.1 HIV 1&2 Antibody Screen HIV P24 Antigen 02/25/19 02/25/19 02/25/19 06:21 11:59 16:44 WBC RBC Hgb Hct MCV MCH MCHC RDW Plt Count MPV Absolute Neuts (auto) Neutrophils % Lymphocytes % Monocytes % Eosinophils % Basophils % Nucleated RBC % POC Glucometer 238 365 326 Levetiracetam HIV 1&2 Antibody Screen HIV P24 Antigen 02/25/19 02/26/19 02/26/19 21:55 06:29 10:51 WBC RBC Hgb Hct MCV MCH MCHC RDW Plt Count MPV Absolute Neuts (auto) Neutrophils % Lymphocytes % Monocytes % Eosinophils % Basophils % Nucleated RBC % POC Glucometer 212 210 251 Levetiracetam HIV 1&2 Antibody Screen HIV P24 Antigen 02/26/19 02/26/19 02/27/19 16:31 20:41 06:06 WBC RBC Hgb Hct MCV MCH MCHC RDW Plt Count MPV Absolute Neuts (auto) Neutrophils % Lymphocytes % Monocytes % Eosinophils % Basophils % Nucleated RBC % POC Glucometer 320 310 183 Levetiracetam HIV 1&2 Antibody Screen HIV P24 Antigen 02/27/19 02/27/19 02/27/19 11:50 16:34 20:41 WBC RBC Hgb Hct MCV MCH MCHC RDW Plt Count MPV Absolute Neuts (auto) Neutrophils % Lymphocytes % Monocytes % Eosinophils % Basophils % Nucleated RBC % POC Glucometer 395 380 207 Levetiracetam HIV 1&2 Antibody Screen HIV P24 Antigen 02/28/19 02/28/19 02/28/19 06:25 11:41 16:29 WBC RBC Hgb Hct MCV MCH MCHC RDW Plt Count MPV Absolute Neuts (auto) Neutrophils % Lymphocytes % Monocytes % Eosinophils % Basophils % Nucleated RBC % POC Glucometer 164 372 383 Levetiracetam HIV 1&2 Antibody Screen HIV P24 Antigen 02/28/19 03/01/19 03/01/19 21:40 06:24 10:53 WBC RBC Hgb Hct MCV MCH MCHC RDW Plt Count MPV Absolute Neuts (auto) Neutrophils % Lymphocytes % Monocytes % Eosinophils % Basophils % Nucleated RBC % POC Glucometer 263 188 277 Levetiracetam HIV 1&2 Antibody Screen HIV P24 Antigen 03/01/19 03/01/19 03/01/19 16:47 16:48 21:42 WBC RBC Hgb Hct MCV MCH MCHC RDW Plt Count MPV Absolute Neuts (auto) Neutrophils % Lymphocytes % Monocytes % Eosinophils % Basophils % Nucleated RBC % POC Glucometer 333 321 199 Levetiracetam HIV 1&2 Antibody Screen HIV P24 Antigen 03/02/19 03/02/19 03/02/19 06:34 12:04 16:59 WBC RBC Hgb Hct MCV MCH MCHC RDW Plt Count MPV Absolute Neuts (auto) Neutrophils % Lymphocytes % Monocytes % Eosinophils % Basophils % Nucleated RBC % POC Glucometer 204 353 253 Levetiracetam HIV 1&2 Antibody Screen HIV P24 Antigen 03/02/19 03/03/19 03/03/19 20:45 06:00 11:49 WBC RBC Hgb Hct MCV MCH MCHC RDW Plt Count MPV Absolute Neuts (auto) Neutrophils % Lymphocytes % Monocytes % Eosinophils % Basophils % Nucleated RBC % POC Glucometer 203 151 339 Levetiracetam HIV 1&2 Antibody Screen HIV P24 Antigen 03/03/19 03/04/19 03/04/19 17:00 07:40 16:38 WBC RBC Hgb Hct MCV MCH MCHC RDW Plt Count MPV Absolute Neuts (auto) Neutrophils % Lymphocytes % Monocytes % Eosinophils % Basophils % Nucleated RBC % POC Glucometer 291 229 390 Levetiracetam HIV 1&2 Antibody Screen HIV P24 Antigen 03/04/19 03/05/19 03/05/19 20:56 11:56 16:50 WBC RBC Hgb Hct MCV MCH MCHC RDW Plt Count MPV Absolute Neuts (auto) Neutrophils % Lymphocytes % Monocytes % Eosinophils % Basophils % Nucleated RBC % POC Glucometer 257 323 284 Levetiracetam HIV 1&2 Antibody Screen HIV P24 Antigen 03/05/19 03/06/19 03/06/19 20:55 12:01 16:48 WBC RBC Hgb Hct MCV MCH MCHC RDW Plt Count MPV Absolute Neuts (auto) Neutrophils % Lymphocytes % Monocytes % Eosinophils % Basophils % Nucleated RBC % POC Glucometer 299 399 353 Levetiracetam HIV 1&2 Antibody Screen HIV P24 Antigen 03/06/19 03/07/19 03/07/19 21:25 06:31 11:56 WBC RBC Hgb Hct MCV MCH MCHC RDW Plt Count MPV Absolute Neuts (auto) Neutrophils % Lymphocytes % Monocytes % Eosinophils % Basophils % Nucleated RBC % POC Glucometer 271 175 441 Levetiracetam HIV 1&2 Antibody Screen HIV P24 Antigen 03/07/19 03/07/19 03/08/19 16:29 20:46 06:10 WBC RBC Hgb Hct MCV MCH MCHC RDW Plt Count MPV Absolute Neuts (auto) Neutrophils % Lymphocytes % Monocytes % Eosinophils % Basophils % Nucleated RBC % POC Glucometer 317 205 186 Levetiracetam HIV 1&2 Antibody Screen HIV P24 Antigen 03/08/19 03/08/19 03/09/19 10:50 16:28 06:10 WBC RBC Hgb Hct MCV MCH MCHC RDW Plt Count MPV Absolute Neuts (auto) Neutrophils % Lymphocytes % Monocytes % Eosinophils % Basophils % Nucleated RBC % POC Glucometer 311 366 148 Levetiracetam HIV 1&2 Antibody Screen HIV P24 Antigen 03/09/19 03/09/19 03/09/19 12:01 16:43 21:54 WBC RBC Hgb Hct MCV MCH MCHC RDW Plt Count MPV Absolute Neuts (auto) Neutrophils % Lymphocytes % Monocytes % Eosinophils % Basophils % Nucleated RBC % POC Glucometer 305 280 235 Levetiracetam HIV 1&2 Antibody Screen HIV P24 Antigen 03/10/19 03/10/19 03/10/19 06:24 12:00 16:47 WBC RBC Hgb Hct MCV MCH MCHC RDW Plt Count MPV Absolute Neuts (auto) Neutrophils % Lymphocytes % Monocytes % Eosinophils % Basophils % Nucleated RBC % POC Glucometer 165 313 287 Levetiracetam HIV 1&2 Antibody Screen HIV P24 Antigen 03/10/19 03/11/19 03/11/19 21:36 06:13 11:54 WBC RBC Hgb Hct MCV MCH MCHC RDW Plt Count MPV Absolute Neuts (auto) Neutrophils % Lymphocytes % Monocytes % Eosinophils % Basophils % Nucleated RBC % POC Glucometer 256 164 386 Levetiracetam HIV 1&2 Antibody Screen HIV P24 Antigen 03/11/19 03/12/19 03/12/19 16:57 05:55 12:05 WBC RBC Hgb Hct MCV MCH MCHC RDW Plt Count MPV Absolute Neuts (auto) Neutrophils % Lymphocytes % Monocytes % Eosinophils % Basophils % Nucleated RBC % POC Glucometer 201 175 270 Levetiracetam HIV 1&2 Antibody Screen HIV P24 Antigen 03/12/19 03/12/19 03/13/19 16:47 22:00 07:24 WBC RBC Hgb Hct MCV MCH MCHC RDW Plt Count MPV Absolute Neuts (auto) Neutrophils % Lymphocytes % Monocytes % Eosinophils % Basophils % Nucleated RBC % POC Glucometer 237 243 154 Levetiracetam HIV 1&2 Antibody Screen HIV P24 Antigen 03/13/19 03/13/19 03/13/19 11:55 16:49 21:34 WBC RBC Hgb Hct MCV MCH MCHC RDW Plt Count MPV Absolute Neuts (auto) Neutrophils % Lymphocytes % Monocytes % Eosinophils % Basophils % Nucleated RBC % POC Glucometer 283 233 173 Levetiracetam HIV 1&2 Antibody Screen HIV P24 Antigen 03/14/19 03/14/19 03/14/19 07:46 11:45 16:38 WBC RBC Hgb Hct MCV MCH MCHC RDW Plt Count MPV Absolute Neuts (auto) Neutrophils % Lymphocytes % Monocytes % Eosinophils % Basophils % Nucleated RBC % POC Glucometer 115 345 221 Levetiracetam HIV 1&2 Antibody Screen HIV P24 Antigen 03/14/19 03/15/19 03/15/19 21:38 06:55 11:42 WBC RBC Hgb Hct MCV MCH MCHC RDW Plt Count MPV Absolute Neuts (auto) Neutrophils % Lymphocytes % Monocytes % Eosinophils % Basophils % Nucleated RBC % POC Glucometer 272 170 278 Levetiracetam HIV 1&2 Antibody Screen HIV P24 Antigen 03/15/19 03/15/19 03/16/19 16:39 21:41 05:58 WBC RBC Hgb Hct MCV MCH MCHC RDW Plt Count MPV Absolute Neuts (auto) Neutrophils % Lymphocytes % Monocytes % Eosinophils % Basophils % Nucleated RBC % POC Glucometer 279 208 217 Levetiracetam HIV 1&2 Antibody Screen HIV P24 Antigen 03/16/19 03/16/19 03/16/19 11:52 16:41 21:27 WBC RBC Hgb Hct MCV MCH MCHC RDW Plt Count MPV Absolute Neuts (auto) Neutrophils % Lymphocytes % Monocytes % Eosinophils % Basophils % Nucleated RBC % POC Glucometer 282 277 148 Levetiracetam HIV 1&2 Antibody Screen HIV P24 Antigen 03/17/19 03/17/19 03/17/19 11:49 16:46 20:42 WBC RBC Hgb Hct MCV MCH MCHC RDW Plt Count MPV Absolute Neuts (auto) Neutrophils % Lymphocytes % Monocytes % Eosinophils % Basophils % Nucleated RBC % POC Glucometer 307 329 262 Levetiracetam HIV 1&2 Antibody Screen HIV P24 Antigen 03/18/19 03/18/19 03/18/19 06:06 11:46 16:41 WBC RBC Hgb Hct MCV MCH MCHC RDW Plt Count MPV Absolute Neuts (auto) Neutrophils % Lymphocytes % Monocytes % Eosinophils % Basophils % Nucleated RBC % POC Glucometer 262 347 354 Levetiracetam HIV 1&2 Antibody Screen HIV P24 Antigen 03/18/19 03/19/19 03/19/19 21:44 07:25 11:47 WBC RBC Hgb Hct MCV MCH MCHC RDW Plt Count MPV Absolute Neuts (auto) Neutrophils % Lymphocytes % Monocytes % Eosinophils % Basophils % Nucleated RBC % POC Glucometer 216 191 436 Levetiracetam HIV 1&2 Antibody Screen HIV P24 Antigen 03/19/19 03/19/19 03/20/19 16:54 21:44 07:32 WBC RBC Hgb Hct MCV MCH MCHC RDW Plt Count MPV Absolute Neuts (auto) Neutrophils % Lymphocytes % Monocytes % Eosinophils % Basophils % Nucleated RBC % POC Glucometer 295 348 291 Levetiracetam HIV 1&2 Antibody Screen HIV P24 Antigen 03/20/19 03/20/19 03/21/19 12:02 16:48 06:11 WBC RBC Hgb Hct MCV MCH MCHC RDW Plt Count MPV Absolute Neuts (auto) Neutrophils % Lymphocytes % Monocytes % Eosinophils % Basophils % Nucleated RBC % POC Glucometer 294 380 223 Levetiracetam HIV 1&2 Antibody Screen HIV P24 Antigen 03/21/19 03/22/19 03/22/19 12:14 06:03 11:42 WBC RBC Hgb Hct MCV MCH MCHC RDW Plt Count MPV Absolute Neuts (auto) Neutrophils % Lymphocytes % Monocytes % Eosinophils % Basophils % Nucleated RBC % POC Glucometer 432 201 408 Levetiracetam HIV 1&2 Antibody Screen HIV P24 Antigen 03/22/19 03/23/19 21:22 07:35 WBC RBC Hgb Hct MCV MCH MCHC RDW Plt Count MPV Absolute Neuts (auto) Neutrophils % Lymphocytes % Monocytes % Eosinophils % Basophils % Nucleated RBC % POC Glucometer 385 293 Levetiracetam HIV 1&2 Antibody Screen HIV P24 Antigen - Treatment Discharge Condition: Discharge condition good Hospital Course: Rehabilitated safely and responded well CD aftercare referral accepted - Medication Discharge Medications: Ambulatory Orders Citalopram Hydrobromide [Celexa -] 10 mg PO DAILY 02/18/19 Cyclobenzaprine HCl [Flexeril -] 10 mg PO BID 02/18/19 Gabapentin [Neurontin -] 300 mg PO Q8H 02/18/19 Insulin Glargine,Hum.rec.anlog [Lantus Solostar] 15 unit SQ HS 02/18/19 Ketorolac Tromethamine 10 mg PO BID 02/18/19 Multivitamin [Multiple Vitamins] 1 each PO DAILY 02/18/19 Quetiapine Fumarate [Seroquel -] 25 mg PO BID 02/18/19 Escitalopram Oxalate [Lexapro -] 10 mg PO DAILY 02/19/19 Albuterol Sulfate [Proair Hfa] 2 puff IH Q6H PRN 30 Days #1 hfa.aer.ad 02/22/19 Aspirin 81 mg PO DAILY 14 Days #14 tab.chew 02/22/19 Metformin HCl [Glucophage] 500 mg PO BID 14 Days #28 tablet 02/22/19 Montelukast Sodium [Singulair] 10 mg PO DAILY 14 Days #14 tablet 02/22/19 clonazePAM [Klonopin -] 0.5 mg PO BID 02/24/19 levETIRAcetam [Keppra -] 750 mg PO BID 02/25/19 Escitalopram Oxalate [Lexapro -] 10 mg PO DAILY #30 tablet 03/22/19 Quetiapine Fumarate [Seroquel -] 25 mg PO BID #60 tablet 03/22/19 - Medication-Assisted Treatment (MAT) Medication-Assisted Treatment (MAT): No - Discharge Instructions Diet, activity, other medical instructions: Diet:NCS Activity: oob ad patti Other medical instructions:Follow up with primary care providers within 1 week after discharge. follow up with MMTP/CD aftercare as recommended and scheduled in discharge package. - Diagnosis (1) Alcohol dependence Status: Chronic Qualifiers: Substance use status: in withdrawal Complication of substance-induced condition: uncomplicated Qualified Code(s): F10.230 - Alcohol dependence with withdrawal, uncomplicated (2) Cocaine dependence Status: Chronic Qualifiers: Substance use status: uncomplicated Qualified Code(s): F14.20 - Cocaine dependence, uncomplicated (3) Heroin abuse Status: Chronic (4) IVDU (intravenous drug user) Status: Chronic (5) Diabetes mellitus Status: Chronic Qualifiers: Diabetes mellitus type: type 2 Diabetes mellitus half-way insulin use: with adjunct faculty for medical terminology use Diabetes mellitus complication status: with other specified complication Qualified Code(s): E11.69 - Type 2 diabetes mellitus with other specified complication; Z79.4 - remote computer terminal operator (current) use of insulin (6) HLD (hyperlipidemia) Status: Chronic Qualifiers: Hyperlipidemia type: unspecified Qualified Code(s): E78.5 - Hyperlipidemia , unspecified (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 Rx was sent to his [facility] pharmacy by detox provider upon discharge from detox per computer record.
[2019-03-23] MEDS: PRENATAL VITAMINS W/ FOLIC ACID TABLET (FP) PO SCH (09:21)
[2019-03-23] MEDS: QUEtiapine FUMARATE 25 MG TABLET (FP) PO SCH (09:21)
[2019-03-23] MEDS: clonazePAM 0.5 MG TABLET PO SCH (09:21)
[2019-03-23] MEDS: ESCITALOPRAM OXALATE 10 MG TABLET (FP) PO SCH (09:21)
[2019-03-23] MEDS: MONTELUKAST NA 10 MG TABLET PO SCH (09:21)
[2019-03-23] MEDS: PANTOPRAZOLE 40 MG TABLET (FP) PO SCH (09:21)
[2019-03-23] MEDS: ASPIRIN 81 MG CHEWABLE TABLETS PO SCH (09:23)
[2019-03-23] MEDS: LIDOCAINE 5% TOPICAL PATCH TP SCH (09:23)
== END 2019-03-23 10:35 | disposition home or self-care (01) | DRG 772 ==
LOC: YASAS 12:18 → Y5N 12:19
PROVIDERS: ADMIT Neuromusculoskeletal Medicine & OMM; ATTEND Neuromusculoskeletal Medicine & OMM
PROC: HZ42ZZZ Group Counseling for Substance Abuse Treatment, Cognitive-Behavioral (ICD-10-PCS; principal; 2019-02-23)
DX: F10.20 Alcohol dependence, uncomplicated (principal); F11.20 Opioid dependence, uncomplicated; F14.20 Cocaine dependence, uncomplicated; F17.210 Nicotine dependence, cigarettes, uncomplicated; F19.280 Other psychoactive substance dependence with psychoactive substance-induced anxiety disorder; F19.282 Other psychoactive substance dependence with psychoactive substance-induced sleep disorder; F43.10 Post-traumatic stress disorder, unspecified; F31.9 Bipolar disorder, unspecified; E78.5 Hyperlipidemia, unspecified; E11.69 Type 2 diabetes mellitus with other specified complication; G40.909 Epilepsy, unspecified, not intractable, without status epilepticus; B18.2 Chronic viral hepatitis C; Z88.5 Allergy status to narcotic agent; Z79.84 Long term (current) use of oral hypoglycemic drugs
CPT/HCPCS: 36415; 80177; 82962; 85025; 87389

== ENCOUNTER 2020-09-11 16:21 | Inpatient (IN) | payer OTHER ==
[2020-09-11 17:48] VITALS: BMI 18.8
[2020-09-11] MEDS ORDERED: BISMUTH SUBSALICYLATE 524 MG/30 ML UD PO PRN (18:24)
[2020-09-11] MEDS ORDERED: NICOTINE POLACRILEX 2 MG GUM BUC PRN (18:24)
[2020-09-11] MEDS ORDERED: cloNIDine HCL 0.1 MG TABLET PO PRN (18:24)
[2020-09-11] MEDS ORDERED: ACETAMINOPHEN 325 MG TABLET (FP) PO PRN ×2 (18:24)
[2020-09-11] MEDS ORDERED: MAGNESIUM HYDROX 2400MG/30ML ORAL SUSPENSION 30 ML CUP PO PRN (18:24)
[2020-09-11] MEDS ORDERED: MENTHOL/PHENOL 1 EACH UD MM PRN (18:24)
[2020-09-11] MEDS ORDERED: NALOXONE HCL 0.4 MG/ML VIAL IM PRN (18:24)
[2020-09-11] MEDS ORDERED: chlordiazePOXIDE HCL 25 MG CAPSULE PO PRN (18:24)
[2020-09-11] MEDS ORDERED: MAGNESIUM CITRATE 300 ML BOTTLE PO PRN (18:24)
[2020-09-11] MEDS ORDERED: MAG HYDROX/AL HYDROX/SIMETH 30 ML UNIT-DOSE CUP PO PRN (18:24)
[2020-09-11] MEDS ORDERED: METHADONE HCL 10 MG TABLET (FOR DETOX USE ONLY) PO ONE (19:00)
[2020-09-11] MEDS ORDERED: ALBUTEROL SO4 HFA INHALER IH PRN (21:04)
[2020-09-11] MEDS ORDERED: METHADONE HCL 10 MG TABLET (FOR DETOX USE ONLY) ONE (21:11)
[2020-09-11] MEDS ORDERED: INSULIN (LEVEMIR) 100 UNITS/ML UNITS SQ SCH (22:00)
[2020-09-11] MEDS: levETIRAcetam 250 MG TABLET PO SCH (23:35)
[2020-09-11] MEDS: GABAPENTIN 300 MG CAPSULE PO SCH (23:35)
[2020-09-11] MEDS: THIAMINE HCL 100 MG TABLET (FP) PO SCH (23:36)
[2020-09-11] MEDS: MELATONIN 5 MG TABLETS PO SCH (23:36)
[2020-09-11] MEDS: chlordiazePOXIDE HCL 25 MG CAPSULE PO SCH (23:36)
[2020-09-12] MEDS: chlordiazePOXIDE HCL 25 MG CAPSULE PO SCH ×2 (06:09→11:25)
[2020-09-12] MEDS: GABAPENTIN 300 MG CAPSULE PO SCH ×3 (06:10→22:40)
[2020-09-12] MEDS: metFORMIN HCL 500 MG TABLET (FP) PO SCH ×2 (06:14→17:02)
[2020-09-12] MEDS: INSULIN SLIDING SCALE (NOVOLOG) 1 VIAL SQ SCH ×3 (08:20→18:07)
[2020-09-12] MEDS ORDERED: METHADONE HCL 5 MG TABLET (FOR DETOX USE ONLY) ONE (08:35)
[2020-09-12] MEDS ORDERED: METHADONE HCL 10 MG TABLET (FOR DETOX USE ONLY) ONE (08:35)
[2020-09-12] MEDS ORDERED: METHADONE (DETOX) 20 MG, METHADONE (DETOX) 5 MG PO ONE (10:00)
[2020-09-12] MEDS ORDERED: DIVALPROEX NA *ER* EXTEND REL 500 MG TABLET.SA (FP) PO SCH (10:00)
[2020-09-12 10:02] LABS: HEMATOCRIT 37.9 % (35.4-49); MCH 32.4 pg (25.7-33.7); MCHC 34.5 g/dl (32.0-35.9); MEAN PLT VOLUME 8.4 fl (7.5-11.1); PLATELET COUNT 170 K/MM3 (134-434); RBC 4.03 M/mm3 (4.00-5.60); RDW 14.2 % (11.9-15.9); WHITE BLOOD COUNT 9.8 K/mm3 (4.0-10.0)
[2020-09-12 10:43] LABS: ALBUMIN 3.3 g/dl (3.4-5.0); BLOOD UREA NITROGEN 15.7 mg/dL (7-18); CALCIUM 8.4 mg/dL (8.5-10.1)
[2020-09-12 10:46] LABS: CREATININE 0.9 mg/dL (0.55-1.3)
[2020-09-12 10:48] LABS: BILIRUBIN,TOTAL 0.3 mg/dL (0.2-1); TOT PROT 7.3 g/dl (6.4-8.2)
[2020-09-12] MEDS: DIVALPROEX *ER* 500 MG, DIVALPROEX *ER* 250 MG PO SCH (11:25)
[2020-09-12] MEDS: levETIRAcetam 250 MG TABLET PO SCH ×2 (11:25→22:41)
[2020-09-12] MEDS: ASPIRIN 81 MG CHEWABLE TABLETS PO SCH (11:25)
[2020-09-12] MEDS: PRENATAL VITAMINS W/ FOLIC ACID TABLET (FP) PO SCH (11:26)
[2020-09-12] MEDS: CHOLECALCIFEROL (VIT D3) 400 UNIT (10 MCG) TABLET PO SCH (11:26)
[2020-09-12] MEDS: NICOTINE 7 MG/24 HOURS TOPICAL PATCH TD SCH (11:26)
[2020-09-12] MEDS ORDERED: LORazepam 1 MG TABLET PO PRN (11:37)
[2020-09-12] MEDS: LORazepam 2 MG TABLET PO SCH ×2 (18:03→22:40)
[2020-09-12] MEDS: QUEtiapine FUMARATE 50 MG TABLET PO SCH (22:41)
[2020-09-12] MEDS: MELATONIN 5 MG TABLETS PO SCH (22:41)
[2020-09-12] MEDS: THIAMINE HCL 100 MG TABLET (FP) PO SCH (22:42)
[2020-09-12] MEDS: INSULIN (LEVEMIR) 100 UNITS/ML UNITS SQ SCH ×2 (22:42)
[2020-09-13] MEDS ORDERED: chlordiazePOXIDE HCL 25 MG CAPSULE PO SCH (05:00)
[2020-09-13] MEDS: metFORMIN HCL 500 MG TABLET (FP) PO SCH ×2 (06:44→18:24)
[2020-09-13] MEDS: GABAPENTIN 300 MG CAPSULE PO SCH ×3 (06:44→23:08)
[2020-09-13] MEDS: LORazepam 2 MG TABLET PO SCH ×4 (06:44→23:08)
[2020-09-13] MEDS: INSULIN SLIDING SCALE (NOVOLOG) 1 VIAL SQ SCH ×3 (06:46→18:24)
[2020-09-13] MEDS ORDERED: METHADONE HCL 10 MG TABLET (FOR DETOX USE ONLY) PO ONE (10:00)
[2020-09-13] MEDS: ASPIRIN 81 MG CHEWABLE TABLETS PO SCH (10:51)
[2020-09-13] MEDS: PRENATAL VITAMINS W/ FOLIC ACID TABLET (FP) PO SCH (10:51)
[2020-09-13] MEDS: levETIRAcetam 250 MG TABLET PO SCH ×2 (10:51→23:08)
[2020-09-13] MEDS: ESCITALOPRAM OXALATE 10 MG TABLET PO SCH (10:53)
[2020-09-13] MEDS: DIVALPROEX *ER* 500 MG, DIVALPROEX *ER* 250 MG PO SCH (10:53)
[2020-09-13] MEDS: CHOLECALCIFEROL (VIT D3) 400 UNIT (10 MCG) TABLET PO SCH (10:54)
[2020-09-13] MEDS: NICOTINE 7 MG/24 HOURS TOPICAL PATCH TD SCH (11:09)
[2020-09-13] MEDS: THIAMINE HCL 100 MG TABLET (FP) PO SCH (23:08)
[2020-09-13] MEDS: QUEtiapine FUMARATE 50 MG TABLET PO SCH (23:08)
[2020-09-13] MEDS: INSULIN (LEVEMIR) 100 UNITS/ML UNITS SQ SCH (23:09)
[2020-09-13] MEDS: MELATONIN 5 MG TABLETS PO SCH (23:09)
[2020-09-14] MEDS ORDERED: chlordiazePOXIDE HCL 10 MG CAPSULE PO PRN
[2020-09-14] MEDS ORDERED: chlordiazePOXIDE HCL 10 MG CAPSULE PO SCH (05:00)
[2020-09-14] MEDS: GABAPENTIN 300 MG CAPSULE PO SCH ×3 (06:26→22:35)
[2020-09-14] MEDS: LORazepam 1 MG TABLET PO SCH ×4 (06:26→22:34)
[2020-09-14] MEDS: metFORMIN HCL 500 MG TABLET (FP) PO SCH ×2 (06:27→17:42)
[2020-09-14] MEDS: INSULIN SLIDING SCALE (NOVOLOG) 1 VIAL SQ SCH ×3 (07:35→17:42)
[2020-09-14] MEDS: IBUPROFEN 400 MG TABLET (FP) PO PRN ×3 (08:02→22:33)
[2020-09-14] MEDS ORDERED: METHADONE HCL 5 MG TABLET (FOR DETOX USE ONLY) ONE (09:06)
[2020-09-14] MEDS ORDERED: METHADONE HCL 10 MG TABLET (FOR DETOX USE ONLY) ONE (09:07)
[2020-09-14] MEDS ORDERED: METHADONE (DETOX) 10 MG, METHADONE (DETOX) 5 MG PO ONE (10:00)
[2020-09-14] MEDS: ASPIRIN 81 MG CHEWABLE TABLETS PO SCH (12:36)
[2020-09-14] MEDS: levETIRAcetam 250 MG TABLET PO SCH ×2 (12:37→22:33)
[2020-09-14] MEDS: DIVALPROEX *ER* 500 MG, DIVALPROEX *ER* 250 MG PO SCH (12:37)
[2020-09-14] MEDS: ESCITALOPRAM OXALATE 10 MG TABLET PO SCH (12:37)
[2020-09-14] MEDS: NICOTINE 7 MG/24 HOURS TOPICAL PATCH TD SCH (12:38)
[2020-09-14] MEDS: CHOLECALCIFEROL (VIT D3) 400 UNIT (10 MCG) TABLET PO SCH (12:39)
[2020-09-14] MEDS: PRENATAL VITAMINS W/ FOLIC ACID TABLET (FP) PO SCH (12:41)
[2020-09-14] MEDS ORDERED: INSULIN (NOVOLOG) ASPART 100 UNITS/ML 10ML VIAL ONE ×2 (16:42→23:07)
[2020-09-14] MEDS: MELATONIN 5 MG TABLETS PO SCH (22:33)
[2020-09-14] MEDS: THIAMINE HCL 100 MG TABLET (FP) PO SCH (22:33)
[2020-09-14] MEDS: QUEtiapine FUMARATE 50 MG TABLET PO SCH (22:35)
[2020-09-14] MEDS: INSULIN (LEVEMIR) 100 UNITS/ML UNITS SQ SCH (22:36)
[2020-09-14] MEDS ORDERED: INSULIN (LEVEMIR) 100 UNITS/ML UNITS SQ ONE (23:07)
[2020-09-15] MEDS ORDERED: LORazepam 0.5 MG TABLET PO PRN
[2020-09-15] MEDS ORDERED: chlordiazePOXIDE HCL 10 MG CAPSULE PO SCH (05:00)
[2020-09-15] MEDS: metFORMIN HCL 500 MG TABLET (FP) PO SCH ×2 (07:01→17:13)
[2020-09-15] MEDS: GABAPENTIN 300 MG CAPSULE PO SCH ×3 (07:01→23:09)
[2020-09-15] MEDS: LORazepam 0.5 MG TABLET PO SCH ×4 (07:01→23:10)
[2020-09-15] MEDS: INSULIN SLIDING SCALE (NOVOLOG) 1 VIAL SQ SCH ×3 (07:25→17:31)
[2020-09-15 08:06] LABS: SARS-CoV-2 NAA Not Detected (Not Detected)
[2020-09-15] MEDS ORDERED: METHADONE HCL 10 MG TABLET (FOR DETOX USE ONLY) PO ONE (10:00)
[2020-09-15] MEDS: ASPIRIN 81 MG CHEWABLE TABLETS PO SCH (10:59)
[2020-09-15] MEDS: levETIRAcetam 250 MG TABLET PO SCH ×2 (10:59→23:09)
[2020-09-15] MEDS: PRENATAL VITAMINS W/ FOLIC ACID TABLET (FP) PO SCH (10:59)
[2020-09-15] MEDS: ESCITALOPRAM OXALATE 10 MG TABLET PO SCH (11:00)
[2020-09-15] MEDS: NICOTINE 7 MG/24 HOURS TOPICAL PATCH TD SCH (11:00)
[2020-09-15] MEDS: DIVALPROEX *ER* 500 MG, DIVALPROEX *ER* 250 MG PO SCH (11:00)
[2020-09-15] MEDS: CHOLECALCIFEROL (VIT D3) 400 UNIT (10 MCG) TABLET PO SCH (11:12)
[2020-09-15] MEDS ORDERED: INSULIN (NOVOLOG) ASPART 100 UNITS/ML 10ML VIAL ONE ×2 (17:05→23:15)
[2020-09-15] MEDS: METHOCARBAMOL 500 MG TABLET PO PRN ×2 (17:13→23:09)
[2020-09-15] MEDS: QUEtiapine FUMARATE 50 MG TABLET PO SCH (23:09)
[2020-09-15] MEDS: MELATONIN 5 MG TABLETS PO SCH (23:09)
[2020-09-15] MEDS: THIAMINE HCL 100 MG TABLET (FP) PO SCH (23:10)
[2020-09-15] MEDS: INSULIN (LEVEMIR) 100 UNITS/ML UNITS SQ SCH (23:10)
[2020-09-15] MEDS ORDERED: INSULIN (LEVEMIR) 100 UNITS/ML UNITS SQ ONE (23:16)
[2020-09-16] MEDS ORDERED: chlordiazePOXIDE HCL 10 MG CAPSULE PO ONE (05:00)
[2020-09-16] MEDS ORDERED: LORazepam 0.5 MG TABLET PO ONE (05:00)
[2020-09-16] MEDS: GABAPENTIN 300 MG CAPSULE PO SCH ×2 (05:50→15:13)
[2020-09-16] MEDS ORDERED: METHADONE HCL 5 MG TABLET (FOR DETOX USE ONLY) PO ONE (06:00)
[2020-09-16] MEDS: DIVALPROEX *ER* 500 MG, DIVALPROEX *ER* 250 MG PO SCH (11:45)
[2020-09-16] MEDS: CHOLECALCIFEROL (VIT D3) 400 UNIT (10 MCG) TABLET PO SCH (11:45)
[2020-09-16] MEDS: ESCITALOPRAM OXALATE 10 MG TABLET PO SCH (11:46)
[2020-09-16] MEDS: levETIRAcetam 250 MG TABLET PO SCH (11:46)
[2020-09-16] MEDS: ASPIRIN 81 MG CHEWABLE TABLETS PO SCH (11:46)
[2020-09-16] MEDS: NICOTINE 7 MG/24 HOURS TOPICAL PATCH TD SCH (11:47)
[2020-09-16] MEDS: PRENATAL VITAMINS W/ FOLIC ACID TABLET (FP) PO SCH (11:47)
[2020-09-16] MEDS: INSULIN SLIDING SCALE (NOVOLOG) 1 VIAL SQ SCH ×2 (12:05→17:09)
[2020-09-16 15:17] VITALS: BP 119/67; PULSE 92; TEMP 98.3
[2020-09-16] MEDS: metFORMIN HCL 500 MG TABLET (FP) PO SCH ×2 (17:09→18:21)
== END 2020-09-16 19:28 | disposition home or self-care (01) | DRG 773 ==
LOC: YASAS 16:21 → Y6N 22:36
PROVIDERS: ADMIT Allergy & Immunology; ATTEND Allergy & Immunology
PROC: HZ2ZZZZ Detoxification Services for Substance Abuse Treatment (ICD-10-PCS; principal; 2020-09-11)
DX: F11.23 Opioid dependence with withdrawal (principal); F10.230 Alcohol dependence with withdrawal, uncomplicated; F14.20 Cocaine dependence, uncomplicated; F12.20 Cannabis dependence, uncomplicated; F17.210 Nicotine dependence, cigarettes, uncomplicated; F19.24 Other psychoactive substance dependence with psychoactive substance-induced mood disorder; F31.9 Bipolar disorder, unspecified; F41.9 Anxiety disorder, unspecified; F43.10 Post-traumatic stress disorder, unspecified; G47.00 Insomnia, unspecified; E78.00 Pure hypercholesterolemia, unspecified; E11.9 Type 2 diabetes mellitus without complications; Z79.4 Long term (current) use of insulin; G40.909 Epilepsy, unspecified, not intractable, without status epilepticus; K21.9 Gastro-esophageal reflux disease without esophagitis; B18.2 Chronic viral hepatitis C; Z98.890 Other specified postprocedural states; Z56.0 Unemployment, unspecified; Z59.0 Homelessness; Z88.5 Allergy status to narcotic agent
CPT/HCPCS: 36415; 80053; 80164; 80177; 82140; 82962; 85027; 86780; 93005; 93010; C9803; U0003; U0005